=== PATIENT | female | born 1935 | race Caucasian/White ===

== ENCOUNTER → 2019-05-17 00:01 | Outpatient (BNVA) | payer MEDICARE, OTHER, SELFPAY | PROVIDERS: Family Provider Nurse Practitioner Family; PCP Nurse Practitioner Family; Visit Provider Nurse Practitioner Family | DX: J43.9 Emphysema, unspecified (principal); Z78.9 Other specified health status; E78.5 Hyperlipidemia, unspecified; R06.02 Shortness of breath; R53.83 Other fatigue; I10 Essential (primary) hypertension | CPT/HCPCS: 71046; 80053; 80061; 82607; 83880; 85025 ==

== ENCOUNTER 2019-11-05 09:23 | Outpatient (CLI) | payer MEDICARE, OTHER, SELFPAY ==
[2019-11-05 09:40] VITALS: BMI 35.2
--- NOTE | 2019-11-05 09:48 | ECG_ITS ---
[facility] Test Date: 2019-11-05 Pat Name: Cristina Rock Department: Room: Gender: Female Parts Classifier: : 1935 Requested By: Iza Benjamin Order Number: [id number] Danae MD: Iza Benjamin M.D. Interpretive Statements NAME OF STUDY: LEXISCAN SESTAMIBI STRESS TEST INDICATION: Increased shortness of breath NOTE: Please note that this is the electrocardiogram portion of the Lexiscan/Sestamibi stress test. The perfusion scan will be documented separately. DATA: Baseline heart rate was 57 beats per minute. Baseline blood pressure was 217/84 millimeters of mercury. Target heart rate was 136. Maximum heart rate achieved was 75. which was 55 % of the predicted target heart rate. Maximum blood pressure was 211/86 millimeters of mercury. The reason for ending the test was completion of the protocol. The patient did not experience any symptoms. ELECTROCARDIOGRAM: BASELINE: Sinus bradycardia. Normal axis. Otherwise, no ST-T changes suggestive of ischemia noted. No arrhythmia noted. EXERCISE: After Lexiscan injection, no ST-T changes suggestive of ischemic noted. No arrhythmia noted. CONCLUSION: Please note due to baseline abnormality of the EKG specificity and sensitivity of the EKG portion of LexiScan MIBI stress test will be low 1. EKG not suggestive of ischemia 2. Lexiscan injection unremarkable. 3. Perfusion scan will be documented separately. Electronically Signed On 11-11-2019 12:13:47 CDT by Iza Benjamin M.D. [id number]
--- NOTE | 2019-11-05 09:48 | NMCV_ITS ---
NM jarocho perf SPECT r/s* [id number] Cristina Rock Age: 84 Gender: F : 1935 Exam Date: 11/05/2019 11:01 Ordering Phys: Iza Benjamin MD ([email or web address]) Technologist: YOHANA Edwards Exam Location: [facility] Indications: INCREASED SOB STRESS TEST [facility] IMAGE PROTOCOL Rest/Stress 1 Lexiscan Day Radiopharmaceutical Dose (mCi) Administration Site Administered by Rest: Tc-99m 10.9 IV YOHANA Marrero Sestamibi Stress:Tc-99m 32.4 IV YOHANA Marrero Sestamibi Rest: 05-Nov-2019 60 Discovery 630 Stress: 05-Nov-2019 30 Discovery 630 0.4mg Lexiscan. Images obtained in supine and prone position. SPECT RESULTS Technical Quality: Excellent Raw Data Analysis: Normal Image Corrections: No attenuation or motion correction applied Summed Stress Score: 1 Summed Rest Score: 0 Summed Difference Score: 1 PERFUSION FINDINGS Medium-sized area of fixed perfusion defect noted in mid to distal anterior wall suggestive of old myocardial infarction versus scarring. This EKG is negative for ischemia. FUNCTIONAL RESULTS (calculated via Gated SPECT) Stress Image LV EF (%): 76 Stress EDV (mL):84 TID: 1.08 Stress ESV (mL):20 Rest Image LV EF (%): 76 FUNCTIONAL FINDINGS: There is normal left ventricular systolic function. IMPRESSIONS Medium-sized area of fixed perfusion defect noted in mid to distal anterior wall suggestive of old myocardial infarction versus scarring.Please note that in the absence of wall motion abnormality cannot rule out artifact. This study is negative for ischemia. Iza Benjamin MD (Electronically Signed) Final Date: 05 November 2019 20:20 S
--- NOTE | 2019-11-05 12:17 | SUR.PREOP ---
Patient reports no pain or discomfort prior to the start of the procedure.
[2019-11-05] MEDS: regadenoson 0.4 Mg/5 ml Syringe IVP (12:19)
[2019-11-05 12:27] VITALS: BP 176/82; PULSE 63
== END 2019-11-05 09:24 | disposition home or self-care (01) ==
LOC: CDL 09:23
PROVIDERS: PCP Family Medicine; Visit Provider Internal Medicine Cardiovascular Disease
DX: R06.02 Shortness of breath (principal)
CPT/HCPCS: 78452; 93017; A9500; J2785

== ENCOUNTER → 2020-07-10 08:45 | Outpatient (BNVA) | payer MEDICARE, OTHER, SELFPAY | PROVIDERS: PCP Family Medicine; Visit Provider Nurse Practitioner Family | DX: Z13.6 Encounter for screening for cardiovascular disorders (principal); I10 Essential (primary) hypertension; E55.9 Vitamin D deficiency, unspecified | CPT/HCPCS: 80053; 80061; 82306; 82607; 83036; 84443; 85025 ==

== ENCOUNTER 2020-09-15 13:05 | Outpatient (CLI) | payer MEDICARE, OTHER, SELFPAY ==
--- NOTE | 2020-09-15 13:30 | US_ITS ---
WS: [id number] ULTRASOUND THYROID TECHNIQUE: Ultrasound of the thyroid. CLINICAL INFORMATION: E04.1 - Nontoxic single thyroid nodule COMPARISON: None. FINDINGS: Thyroid: Right and left thyroid lobes are normal in size and echotexture. Multinodular thyroid. Right thyroid lobe: 5.2 cm x 2.1 cm x 1.6 cm 3 right-sided thyroid nodules largest is solid measuring 1.1 x 0.7 CM with a thin hypoechoic halo. 2 additional subcentimeter lesions. Left thyroid lobe: 3.6 cm x 1.4 cm x 1.5 cm. No visualized left-sided nodules. Isthmus: 4.2 mm. Prominent solid nodule along the isthmus measuring 1.1 x 1.4 x 1.7 CM. Cervical lymphadenopathy: None. US/US thyroid [id number] IMPRESSION: 1. Multinodular thyroid with largest nodule in the thyroid isthmus measuring 1 .1 x 1.4 x 1.7 cm. This can be further evaluated with FNA 2. Largest solid right-sided nodule measures 1.1 x 0.7 cm with a hypoechoic guzman lo and increased vascularity. Recommend further evaluation with FNA.
== END 2020-09-15 13:06 | disposition home or self-care (01) ==
LOC: RAD 13:09
PROVIDERS: PCP Family Medicine; Visit Provider Nurse Practitioner Family
DX: E04.1 Nontoxic single thyroid nodule (principal)
CPT/HCPCS: 76536

== ENCOUNTER 2020-09-30 11:51 | Outpatient (CLI) | payer MEDICARE, OTHER, SELFPAY ==
--- NOTE | 2020-09-30 13:30 | US_ITS ---
WS: [id number] ULTRASOUND-GUIDED FNA THYROID INDICATION: Thyroid nodules TECHNIQUE: Ultrasound-guided FNA FINDINGS: The procedure including risks, benefits, and complications were discussed with the patient who agreed to proceed. Using sterile technique patient was prepped and draped in usual sterile fashio n. After 1% lidocaine using ultrasound guidance the isthmus nodule was selected. 4 passes were made i nto the nodule with a 25-gauge needle and active suction. Pathology was present for slide preparation . Next, the right lobe thyroid nodule was localized with hypoechoic halo. After 1% lidocaine using ultr asound guidance 4 passes were made into the right thyroid nodule with a 25-gauge needle and active cummings ction. Pathology was present for slide preparation. Patient remained in the ultrasound Suite 20 minutes postprocedure to assess for neck hematoma. No hematoma or bleeding was visualized. US/US biopsy thyroid [id number] IMPRESSION: Ultrasound-guided FNA of the isthmus and right thyroid nodule.
== END 2020-09-30 11:52 | disposition home or self-care (01) ==
PROVIDERS: PCP Family Medicine; Visit Provider Nurse Practitioner Family
DX: E04.1 Nontoxic single thyroid nodule (principal)
CPT/HCPCS: 10005; 10006; 88173; 88305

== ENCOUNTER → 2020-10-19 10:50 | Outpatient (BNVA) | payer MEDICARE, OTHER, SELFPAY | PROVIDERS: PCP Family Medicine; Visit Provider Nurse Practitioner Family | DX: E55.9 Vitamin D deficiency, unspecified (principal); I10 Essential (primary) hypertension; R49.0 Dysphonia; E53.8 Deficiency of other specified B group vitamins; I48.19 Other persistent atrial fibrillation; E04.1 Nontoxic single thyroid nodule | CPT/HCPCS: 80053; 80061; 82306; 82607; 84443; 85025 ==

== ENCOUNTER → 2021-02-18 17:31 | Outpatient (BNVA) | payer MEDICARE, OTHER, SELFPAY | PROVIDERS: PCP Nurse Practitioner Family; Visit Provider Nurse Practitioner Family | DX: Z20.822 Contact with and (suspected) exposure to COVID-19 (principal) | CPT/HCPCS: 87635 ==

== ENCOUNTER 2021-02-24 13:06 | Outpatient (CLI) | payer MEDICARE, OTHER, SELFPAY ==
[2021-02-24 13:04] VITALS: BP 142/71; PULSE 59; RESP 16; TEMP 36.8; O2SAT 96; BMI 36.1
[2021-02-24 13:57] VITALS: BP 170/82; PULSE 54; RESP 18; TEMP 36.6; O2SAT 94
[2021-02-24 15:06] VITALS: BP 190/81; PULSE 55; RESP 16; TEMP 36.6; O2SAT 95
[2021-02-24 15:40] VITALS: BP 200/85; PULSE 55; RESP 16; TEMP 36.6; O2SAT 95
--- NOTE | 2021-02-24 15:49 | PC.NURSE ---
Pt's blood pressure consistently increased with each vitals assessment. Final BP was 200/85, informed Dr. Morton of BP, pt was asymptomatic. Per Dr. Morton's instructions pt was instructed to recheck BP upon arrival at home. Pt voiced understanding and appreciation.
== END 2021-02-24 13:07 | disposition home or self-care (01) ==
LOC: OPS 13:12
PROVIDERS: PCP Nurse Practitioner Family; Visit Provider Nurse Practitioner Family
DX: U07.1 COVID-19 (principal)
CPT/HCPCS: 96365

== ENCOUNTER → 2021-03-15 15:30 | Outpatient (BNVA) | payer MEDICARE, OTHER, SELFPAY | PROVIDERS: PCP Nurse Practitioner Family; Visit Provider Nurse Practitioner Family | DX: R53.83 Other fatigue (principal); E78.2 Mixed hyperlipidemia; I10 Essential (primary) hypertension; Z68.35 Body mass index [BMI] 35.0-35.9, adult; Z71.89 Other specified counseling; E55.9 Vitamin D deficiency, unspecified | CPT/HCPCS: 80053; 80061; 82306; 82607; 84443; 85025 ==

== ENCOUNTER → 2021-05-21 11:50 | Outpatient (BNVA) | payer MEDICARE, OTHER, SELFPAY | PROVIDERS: PCP Nurse Practitioner Family; Visit Provider Nurse Practitioner Family | DX: R19.7 Diarrhea, unspecified (principal) | CPT/HCPCS: 87338; 87493; 87506 ==

== ENCOUNTER → 2021-06-01 16:39 | Outpatient (BNVA) | payer MEDICARE, OTHER, SELFPAY | PROVIDERS: PCP Nurse Practitioner Family; Visit Provider Nurse Practitioner Family | DX: M19.021 Primary osteoarthritis, right elbow (principal); M85.88 Other specified disorders of bone density and structure, other site | CPT/HCPCS: 73080 ==

== ENCOUNTER → 2021-07-27 00:01 | Outpatient (BNVA) | payer MEDICARE, OTHER, SELFPAY | PROVIDERS: PCP Nurse Practitioner Family; Visit Provider Dermatology | DX: Z01.89 Encounter for other specified special examinations (principal) ==

== ENCOUNTER → 2021-09-10 13:27 | Outpatient (BNVA) | payer MEDICARE, OTHER, SELFPAY | PROVIDERS: PCP Nurse Practitioner Family; Visit Provider Nurse Practitioner Family | DX: E04.1 Nontoxic single thyroid nodule (principal); G25.81 Restless legs syndrome; I48.19 Other persistent atrial fibrillation; E53.8 Deficiency of other specified B group vitamins | CPT/HCPCS: 80053; 80061; 82607; 83735; 84439; 84443; 85025 ==

== ENCOUNTER → 2021-09-15 15:04 | Outpatient (BNVA) | payer MEDICARE, OTHER, SELFPAY | PROVIDERS: PCP Nurse Practitioner Family; Visit Provider Nurse Practitioner Family | DX: E87.6 Hypokalemia (principal); E55.9 Vitamin D deficiency, unspecified; R53.83 Other fatigue; I48.91 Unspecified atrial fibrillation; I48.19 Other persistent atrial fibrillation | CPT/HCPCS: 80048; 82306 ==

== ENCOUNTER 2021-09-21 10:48 | Outpatient (CLI) | payer MEDICARE, OTHER, SELFPAY ==
--- NOTE | 2021-09-21 12:00 | CT_ITS ---
WS: [id number] CT CHEST, ABDOMEN AND PELVIS WITH CONTRAST. HISTORY: Short of breath, nausea, weakness and fatigue. History of uterine cancer. TECHNIQUE: Contiguous 5 mm axial imaging performed through the chest, abdomen and pelvis with IV cont rast, oral contrast has been provided. Coronal and sagittal reformats chest. Coronal and sagittal ref ormats through the abdomen and pelvis. All CT scans at [facility] use at least one of these d ose optimization techniques: automated exposure control; mA and/or kV adjustment per patient size (in cludes targeted exams where dose is matched to clinical indication); or iterative reconstruction. CONTRAST: Omnipaque 300; 50 mL IV. DLP: 1650.37 mGy.cm COMPARISON: 08/29/[address]: Patient has numerous bilateral subcentimeter pulmonary nodules. Some of these are calcified and some are noncalcified. The largest nodule measures 5 mm in the RIGHT lower lobe and was present in 2017 and also 2014. No pneumonia or new pulmonary mass. Normal size pulmonary artery. Mild atheros clerosis aorta. No new or increasing mediastinal or hilar lymph nodes. LEFT heart chambers are modera tely enlarged. No pericardial effusion. Small hiatal hernia. Mild increase in thoracic kyphosis. Abdomen CT: Liver and spleen are normal size. No metastatic lesions in the liver. Normal bile ducts a nd normal portal vein. Prior cholecystectomy. Pancreas is normal. Normal adrenal glands. No renal mas s or obstruction. Mild atherosclerotic calcification throughout the aorta. No ascites or adenopathy. Numerous salima are noted along the anterior abdominal wall. Moderately distended stomach with fluid. No wall thickening. No small bowel obstruction. There is dif fuse fecal retention throughout the colon and a few scattered diverticula with no acute diverticuliti s. The appendix is been removed. Pelvic CT: Prior hysterectomy. Well-distended urinary bladder. No adenopathy or ascites. Mild degenerative disc disease and vacuum disc phenomenon at L4-5 and L5-S1. No osteoblastic or osteo lytic bone lesions. CT/CT chest abd pel w con* IMPRESSION: 1. Long-term stability of subcentimeter calcified and noncalcified pulmonary n odules. No new nodule or mass. 2. No adenopathy throughout the chest, abdomen or pelvis. 3. Moderate LEFT heart enlargement. 4. Prior hysterectomy, appendectomy and cholecystectomy.
== END 2021-09-21 10:49 | disposition home or self-care (01) ==
LOC: RAD 10:52
PROVIDERS: PCP Nurse Practitioner Family; Visit Provider Nurse Practitioner Family
DX: R53.83 Other fatigue (principal); R91.8 Other nonspecific abnormal finding of lung field; I51.7 Cardiomegaly
CPT/HCPCS: 71260; 74177; Q9967

== ENCOUNTER → 2021-11-12 09:46 | Outpatient (BNVA) | payer MEDICARE, OTHER, SELFPAY | PROVIDERS: PCP Nurse Practitioner Family; Visit Provider Internal Medicine | DX: R06.02 Shortness of breath (principal); I48.19 Other persistent atrial fibrillation; I10 Essential (primary) hypertension | CPT/HCPCS: 99214 ==

== ENCOUNTER → 2021-12-22 15:59 | Outpatient (BNVA) | payer MEDICARE, OTHER, SELFPAY | PROVIDERS: PCP Nurse Practitioner Family; Visit Provider Family Medicine | DX: E04.1 Nontoxic single thyroid nodule (principal); E53.8 Deficiency of other specified B group vitamins; E55.9 Vitamin D deficiency, unspecified; E78.5 Hyperlipidemia, unspecified; I10 Essential (primary) hypertension; I48.91 Unspecified atrial fibrillation; R53.83 Other fatigue | CPT/HCPCS: 80053; 80061; 82306; 82607; 84443; 85025 ==

== ENCOUNTER 2022-02-18 08:55 | Outpatient (CLI) | payer MEDICARE, OTHER, SELFPAY ==
--- NOTE | 2022-02-18 09:10 | ECG_ITS ---
[facility] Test Date: 2022-02-18 Pat Name: Cristina Rock Department: Room: Gender: Female Patient Access Director: : 1935 Requested By: Alrieza Haile Order Number: [id number] Danae MD: Alireza Haile M.D. Interpretive Statements NAME OF STUDY: LEXISCAN SESTAMIBI STRESS TEST INDICATION: [HTN/AFIB, ] Procedure: At the baseline, the blood pressure was 177/75 mmHg with a heart rate of 51 bpm. The electrocardiogram showed sinus bradycardia, normal axis with normal ST and T waves. The Lexiscan was infused over a period of 20 seconds. A total of 0.4 mg of Lexiscan was infused. The stress phase was continued for a total of 5 minutes. Heart rate was at the end of stress phase was 61 bpm and blood pressure was not recorded. The EKG at the peak infusion revealed normal sinus rhythm with no significant ST-T wave changes. Sestamibi was injected 20 seconds after the Lexiscan infusion. Blood pressure was not recorded at end of recovery phase with a heart rate of 56 bpm. Conclusion: 1. Normal EKG response to Lexiscan infusion 2. No Lexiscan induced chest pain or cardiac arrhythmia. 3. Normal blood pressure and heart rate response. 4. Sestamibi/sestamibi perfusion scan pending; see separate report. Electronically Signed On 02-19-2022 21:25:03 CDT by Alireza Haile M.D. [id number]
--- NOTE | 2022-02-18 09:10 | NMCV_ITS ---
NM jarocho perf SPECT r/s* [id number] Cristina Rock Age: 86 Gender: F : 1935 Exam Date: 02/18/2022 10:33 Ordering Phys: Alireza Haile M.D ([email or web address]) Technologist: YOHANA Edwards Exam Location: [facility] Indications: CHF AFIB STRESS TEST [facility] IMAGE PROTOCOL Rest/Stress 1 Lexiscan Day Radiopharmaceutical Dose (mCi) Administration Site Administered by Rest: Tc-99m 10.7 IV YOHANA Marrero Sestamibi Stress:Tc-99m 32.4 IV YOHANA Marrero Sestamibi Rest: 18-Feb-2022 60 Discovery 630 Stress: 18-Feb-2022 30 Discovery 630 0.4mg Lexiscan. Supine position only as patient was unable to lay prone. SPECT RESULTS Technical Quality: Excellent Raw Data Analysis: Normal Image Corrections: No attenuation or motion correction applied Summed Stress Score: 0 Summed Rest Score: 0 Summed Difference Score: 0 PERFUSION FINDINGS SPECT images demonstrate homogeneous tracer distribution throughout the myocardium. FUNCTIONAL RESULTS (calculated via Gated SPECT) Stress Image LV EF (%): 72 Stress EDV (mL):82 TID: 1.26 Stress ESV (mL):23 FUNCTIONAL FINDINGS: There is normal left ventricular systolic function. IMPRESSIONS 1. Normal myocardial perfusion imaging with no evidence of ischemia. 2. LV systolic function is normal. Alireza Haile MD (Electronically Signed) Final Date: 18 February 2022 13:27 S
[2022-02-18 09:46] VITALS: BMI 34.0
[2022-02-18] MEDS: regadenoson 0.4 Mg/5 ml Syringe IVP (11:01)
[2022-02-18 11:59] VITALS: BP 177/75; PULSE 61
== END 2022-02-18 08:56 | disposition home or self-care (01) ==
LOC: CDL 08:59
PROVIDERS: PCP Nurse Practitioner Family; Visit Provider Internal Medicine
DX: I50.9 Heart failure, unspecified (principal); I48.91 Unspecified atrial fibrillation
CPT/HCPCS: 78452; 93017; A9500; J2785

== ENCOUNTER → 2022-06-21 13:25 | Outpatient (BNVA) | payer MEDICARE, OTHER, SELFPAY | PROVIDERS: PCP Nurse Practitioner Family; Visit Provider Nurse Practitioner Family | DX: M25.511 Pain in right shoulder (principal); M16.11 Unilateral primary osteoarthritis, right hip; M25.551 Pain in right hip | CPT/HCPCS: 73030; 73502 ==

== ENCOUNTER → 2022-08-12 08:39 | Outpatient (BNVA) | payer MEDICARE, OTHER, SELFPAY | PROVIDERS: PCP Nurse Practitioner Family; Visit Provider Internal Medicine | DX: I48.19 Other persistent atrial fibrillation (principal); I11.0 Hypertensive heart disease with heart failure; I50.30 Unspecified diastolic (congestive) heart failure; Z79.01 Long term (current) use of anticoagulants | CPT/HCPCS: 99214 ==

== ENCOUNTER → 2022-08-22 10:50 | Outpatient (BNVA) | payer MEDICARE, OTHER, SELFPAY | PROVIDERS: PCP Nurse Practitioner Family; Visit Provider Nurse Practitioner Family | DX: E53.8 Deficiency of other specified B group vitamins (principal); I48.19 Other persistent atrial fibrillation; R07.9 Chest pain, unspecified; E55.9 Vitamin D deficiency, unspecified | CPT/HCPCS: 80053; 80061; 82306; 82607; 83735; 84443; 85025 ==

== ENCOUNTER 2022-09-07 10:54 | Outpatient (CLI) | payer MEDICARE, OTHER, SELFPAY ==
--- NOTE | 2022-09-07 11:15 | USCV_ITS ---
Cristina Rock Age: 86 Gender: F : 1935 Exam Date: 09/07/2022 11:15 Ordering Phys: Alireza Haile M.D ([email or web address]) Technologist: Cristhian Sullivan Exam Location: [facility] Indication: SOB/ CHEST PAIN BP: 136 / 70 HR: 87 Rhythm: Sinus Technical Quality: Adequate MEASUREMENTS (Male / Female) Normal Values 2D ECHO LV Diastolic Diameter PLAX 3.5 cm 4.2 - 5.9 / 3.9 - 5.3 cm LV Systolic Diameter PLAX 2.1 cm IVS Diastolic Thickness 1.1 cm 0.6 - 1.0 / 0.6 - 0.9 cm IVS Systolic Thickness 1.7 cm LVPW Diastolic Thickness 2.1 cm 0.6 - 1.0 / 0.6 - 0.9 cm LVPW Systolic Thickness 1.7 cm LVOT Diameter 2.0 cm LV Ejection Fraction 2D Teich 70.7 % LV Ejection Fraction MOD 2C 65.9 % LV Ejection Fraction 2C AL 66.0 % LA Diameter 3.8 cm LA Width 3.6 cm LA Height 6.0 cm RA Width 3.9 cm RA Height 5.6 cm Aorta at Sinotubular Diameter 2.2 cm IVC Diameter 1.8 cm M-MODE Aortic Annulus Diameter 2.7 cm LA Ao Ratio MM 1.5 MV E Point Septal Separation 0.6 cm DOPPLER AV Peak Velocity 115.0 cm/s LVOT Peak Velocity 92.0 cm/s AV Area Cont Eq vti 2.5 cm squared AV Area Cont Eq pk 2.5 cm squared MV Peak Velocity 121.0 cm/s MV Area PHT 5.8 cm squared Mitral E to A Ratio 3.3 MV E' Velocity 48.5 cm/s Mitral E to MV E' Ratio 10.9 Mitral E to LV E' Lateral Ratio 8.1 Mitral E to LV E' Septal Ratio 16.6 TR Peak Velocity 299.4 cm/s TR Peak Gradient 35.9 mmHg TR Mean Velocity 223.9 cm/s TR Mean Gradient 21.5 mmHg TR Velocity Time Integral 90.2 cm Right Atrial Pressure 3.0 mmHg Pulmonary Artery Systolic Pressu 38.9 mmHg PV Peak Velocity 93.3 cm/s RV Acceleration Time 0.1 s RV Ejection Time 0.3 s RV AcT/ET 0.4 FINDINGS Left Ventricle Left ventricle is normal in size. LV systolic function is normal with EF of 55-60%. No regional wall motion abnormalities are seen. Right Ventricle Normal in size and function Right Atrium Normal in size Left Atrium Normal in size Mitral Valve Structurally normal mitral valve. Mild to moderate mitral regurgitation. Aortic Valve Structurally normal aortic valve. No significant stenosis. Mild aortic regurgitation. Tricuspid Valve Mild to moderate tricuspid regurgitation. RVSP is 35-40mmHg. This is consistent with mild pulmonary hypertension Pulmonic Valve Not well visualized. Mild pulmonary hypertension Pericardium Normal Aorta Normal in size IVC Appears to be normal CONCLUSIONS LV systolic function is normal with EF of 55-60% Mild to moderate mitral regurgitation Mild aortic regurgitation Mild to moderate tricuspid regurgitation. Mild pulmonary hypertension Compared to prior echocardiogram from 2018, no significant changes are seen Alireza Haile MD (Electronically Signed) Final Date: 20 Sep 2022 16:50 S
== END 2022-09-07 10:55 | disposition home or self-care (01) ==
LOC: RAD 10:56
PROVIDERS: PCP Nurse Practitioner Family; Visit Provider Internal Medicine
DX: R06.02 Shortness of breath (principal); R07.9 Chest pain, unspecified
CPT/HCPCS: 93306

== ENCOUNTER → 2022-09-15 11:21 | Outpatient (BNVA) | payer MEDICARE, OTHER, SELFPAY | PROVIDERS: PCP Nurse Practitioner Family; Visit Provider Nurse Practitioner Family | DX: R06.02 Shortness of breath (principal); I70.90 Unspecified atherosclerosis | CPT/HCPCS: 71046 ==

== ENCOUNTER → 2022-11-18 11:25 | Outpatient (BNVA) | payer MEDICARE, OTHER, SELFPAY | PROVIDERS: PCP Nurse Practitioner Family; Visit Provider Nurse Practitioner Family | DX: E55.9 Vitamin D deficiency, unspecified (principal); E53.8 Deficiency of other specified B group vitamins; I48.19 Other persistent atrial fibrillation | CPT/HCPCS: 80053; 82306; 82607; 83735; 84443; 85025 ==

== ENCOUNTER 2023-01-09 18:26 | Emergency (ER) | payer MEDICARE, OTHER, SELFPAY ==
[2023-01-09 18:43] VITALS: BP 125/81; PULSE 80; RESP 16; TEMP 36.9; O2SAT 94; BMI 32.1
--- NOTE | 2023-01-09 18:57 | ECG_ITS ---
[facility] Test Date: 2023-01-09 Pat Name: Cristina Rock Department: Room: Gender: Female Science Teacher: : 1935 Requested By: Tatiana Hilliard Order Number: [id number] Danae MD: Alireza Haile M.D. Measurements Intervals [place] Rate: 112 P: 0 IL: 0 QRS: -68 QRSD: 99 T: 86 QT: 357 QTc: 488 Interpretive Statements ATRIAL FLUTTER/TACHYCARDIA WITH RAPID VENTRICULAR RESPONSE LEFT AXIS DEVIATION [QRS AXIS < -30] INCOMPLETE RIGHT BUNDLE BRANCH BLOCK [90+ ms QRS DURATION, TERMINAL R IN V1/V2, 40+ ms S IN I/aVL/V4/V5/V6] VOLTAGE CRITERIA FOR LVH [MEETS CRITERIA IN ONE OF: R(aVL), S(V1), R(V5), R(V5/V6)+S(V1)] POSSIBLE SEPTAL MYOCARDIAL INFARCTION , OF INDETERMINATE AGE [30 ms Q WAVE IN V1/V2] Compared to ECG 10/18/2018 06:00:56 Left-axis deviation now present Incomplete right bundle-branch block now present Sinus bradycardia no longer present Myocardial infarct finding still present Electronically Signed On 01-09-2023 20:22:37 CDT by Alireza Haile M.D. [id number]
--- NOTE | 2023-01-09 19:03 | XRR_ITS ---
PROCEDURE INFORMATION: Exam: XR Chest Exam date and time: 01/09/2023 7:10 PM Age: 87 years old Clinical indication: Pain; Chest pressure; Additional info: Cp TECHNIQUE: Imaging protocol: Radiologic exam of the chest. Views: 1 view. COMPARISON: CR XR chest 2V* [id number] 09/15/2022 11:25 AM FINDINGS: Lungs: Unremarkable. No consolidation. Pleural spaces: Unremarkable. No pleural effusion. No pneumothorax. Heart/Mediastinum: Unremarkable. No cardiomegaly. Bones/joints: Unremarkable. XR/XR chest 1V portable [id number] IMPRESSION: No acute findings.
[2023-01-09 19:08] VITALS: BP 121/84; PULSE 85; RESP 18; O2SAT 91
--- NOTE | 2023-01-09 19:17 | W.ED.CHESTPA ---
HPI - Chest Pain General: Chief Complaint: Chest Pain Stated Complaint: afib with rvd/ covid symptoms Time Seen by Provider: 01/09/23 18:44 Source: patient and EMS Mode of arrival: EMS Limitations: no limitations History of Present Illness: 87-year-old female with a history of A-fib states that today she was having some difficulty walking and feeling lightheaded. States that she checked her blood pressure it was in the 160s and her heart rate was in the 150s EMS gave her 20 mg of Cardizem IV blood pressure now is 121/84 heart rate is now 84 she states she feels much improved currently states she does not feel does anymore she never had any chest pain she had no shortness of breath denies any fever. Associated symptoms: Reports palpitations; Deny abdominal pain, dyspnea, fever(s), nausea or vomiting Review of Systems Const: Reports: malaise; Denies: fever(s) or chills ENMT: Denies: throat pain or dental pain Card: Reports: palpitations; Denies: chest pain Resp: Denies: dyspnea GI: Denies: abdominal pain, nausea, vomiting or diarrhea : Denies: dysuria Musc: Denies: neck pain or back pain Skin/Breast: Denies: rash Neuro: Reports: dizziness; Denies: headache(s) PFSH ED PFSH: Medical History Anticoagulated Atrial fibrillation Diastolic congestive heart failure Dyslipidemia Elevated liver enzymes Emphysema lung Essential hypertension Fatigue Hyperlipemia Hypertension 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 Pernicious anemia Presbycusis of both ears Primary osteoarthritis of left knee Pulmonary thromboembolism Shortness of breath Statin intolerance Surgical History History of appendectomy History of back surgery History of cholecystectomy Family History Other Heart disease Hypertension Social History Smoking and tobacco status: never smoked Second hand smoke exposure: No Alcohol intake: never Substance/Drug Use: never Lives independently: Yes Household members: none Housing: House Marital status: / service: No Current occupational status: retired Pets and animals: Yes Current gender identity: Female Special james needs: No Agree to transfusion: Yes Physical Exam Const: COMMON NORMALS: no acute distress, patient oriented x3 and healthy appearing HENMT: COMMON NORMALS: normocephalic and atraumatic HEAD & SCALP: normocephalic and atraumatic Eye: COMMON NORMALS: Equal, round and reactive pupils present and EOMs intact bilaterally PUPIL: Yes Equal, round and reactive pupils present Neck/C-Spine: COMMON NORMALS: full ROM and supple Chest: COMMONS NORMALS: normal inspection of the chest and normal palpation of entire chest wall Resp: COMMON NORMALS: normal respiratory effort, No retractions, No use of accessory muscles and clear to auscultation bilaterally AUSCULTATION: clear to auscultation bilaterally Cardio: COMMON NORMALS: regular rate and No murmurs present (Cardio) RATE: regular rate RHYTHM: abnormal rhythm irregularly irregular GI: COMMON NORMALS: Normal to inspection, nondistended, normoactive bowel sounds present, Soft to palpation, non-tender and no masses PALPATION: Yes Soft to palpation Extremity: COMMON NORMALS: normal to inspection and full ROM Neuro: COMMON NORMALS: patient oriented x3, moves all extremities and no focal motor deficits Psych: COMMON NORMALS: mental status grossly normal, Normal thought process present and cooperative THOUGHT PROCESS: Normal thought process present Skin: COMMON NORMALS: no rashes or lesions noted and no wounds GENERAL SKIN EXAM: no rashes or lesions noted Course Vital Signs: Vital signs: Vital Signs Temperature 98.5 F 01/09/23 18:43 Pulse Rate 85 01/09/23 19:08 Respiratory Rate 18 01/09/23 19:08 Blood Pressure 121/84 01/09/23 19:08 Pulse Oximetry 91 01/09/23 19:08 Oxygen Delivery Me thod Room Air 01/09/23 19:08 MDM - Chest Pain Medical Decision Making Patient presents for some generalized weakness along with A-fib with RVR. Her heart rate improved in route should her heart rates been normal here she did test positive for COVID x-rays normal she is not hypoxic here she is stable for discharge she is to follow-up with PCP and return if worsening she understands agrees to plan. Lab Data 01/09/23 20:06 01/09/23 20:06 Radiology Impressions Chest X-Ray 01/09/23 19:03 IMPRESSION: No acute findings. Laboratory Results WBC 6.27 10^3/uL (3.29-11.43) 01/09/23 20:06 RBC 4.99 10^6/uL (3.85-5.65) 01/09/23 20:06 Hgb 14.30 g/dL (11.27-16.99) 01/09/23 20:06 Hct 44.2 % (36-47) 01/09/23 20:06 MCV 88.6 fl (85-98) 01/09/23 20:06 MCH 28.7 pg (27-33) 01/09/23 20:06 MCHC 32.4 g/dL (30-55) 01/09/23 20:06 RDW 13.2 % (12.1-15.1) 01/09/23 20:06 Plt Count 166 10^3/cmm (157-399) 01/09/23 20:06 MPV 11.8 fL (7.4-10.4) H 01/09/23 20:06 Neut % (Auto) 50.3 % 01/09/23 20:06 Lymph % (Auto) 35.7 % 01/09/23 20:06 Wallace % (Auto) 13.4 % 01/09/23 20:06 Eos % (Auto) 0.2 % 01/09/23 20:06 Baso % (Auto) 0.2 % 01/09/23 20:06 Neut # (Auto) 3.16 10^3/uL (1.8-7.7) 01/09/23 20:06 Lymph # (Auto) 2.2 10^3/uL (0.8-4.8) 01/09/23 20:06 Wallace # (Auto) 0.8 10^3/uL (0.2-0.9) 01/09/23 20:06 Eos # (Auto) 0.0 10^3/uL (0.0-0.8) 01/09/23 20:06 Baso # (Auto) 0.0 10^3/uL (0.0-0.1) 01/09/23 20:06 Nucleated RBC % (auto) 0 % 01/09/23 20:06 Nucleated RBCs # 0.0 /100WBC 01/09/23 20:06 PT 15.60 SECONDS (12.1-14.9) H 01/09/23 20:06 INR 1.20 (0.8-1.2) 01/09/23 20:06 Sodium 137 mmol/L (136-145) 01/09/23 20:06 Potassium 4.2 mmol/L (3.5-5.1) 01/09/23 20:06 Chloride 98 mmol/L (98-107) 01/09/23 20:06 Carbon Dioxide 28 mmol/L (22-29) 01/09/23 20:06 Anion Gap 15.2 (5-19) 01/09/23 20:06 BUN 29 mg/dL (8-23) H 01/09/23 20:06 Creatinine 0.9 mg/dL (0.5-0.9) 01/09/23 20:06 GFR Calculation Not Reportable 01/09/23 20:06 Glucose 98 mg/dL (65-115) 01/09/23 20:06 Calculated Osmolality 290 mOsm/kg (285-295) 01/09/23 20:06 Calcium 9.2 mg/dL (8.5-10.5) 01/09/23 20:06 Total Bilirubin 0.5 mg/dL (0.15-1.2) 01/09/23 20:06 AST 22 U/L (0-32) 01/09/23 20:06 ALT 19 U/L (0-33) 01/09/23 20:06 Alkaline Phosphatase 70 U/L (35-105) 01/09/23 20:06 Total Protein 7.0 g/dL (6.6-8.7) 01/09/23 20:06 Albumin 3.7 g/dL (3.5-5.2) 01/09/23 20:06 Globulin 3.3 g/dL (1.3-4.6) 01/09/23 20:06 SARS-CoV-2 Ag (Rapid) Positive (Negative) A* 01/09/23 19:25 Discharge Plan Discharge Patient Disposition: Home Clinical Impression: Atrial fibrillation, COVID-19 Condition: Stable Prescriptions: No Action coenzyme Q10 10 mg capsule 10 mg PO TID vit C,E,Zn,Jc--fcl-zeax 250-2.5-0.5 mg capsule PO Gin-Raisins PO tumeric PO vitamin C PO furosemide 20 mg tablet See Rx Instructions .ROUTE .COMPLEX Qty: 360 3RF Dose Instruction: TAKE ONE TABLET BY MOUTH TWICE DAILY. Rx Instructions: TAKE ONE TABLET BY MOUTH TWICE DAILY. budesonide-formoterol [Symbicort] 160-4.5 mcg/actuation HFA aerosol inhaler See Rx Instructions .ROUTE .COMPLEX Qty: 10.2 12RF Dose Instruction: INHALE 1 PUFF BY MOUTH TWICE DAILY. Rx Instructions: INHALE 1 PUFF BY MOUTH TWICE DAILY. albuterol sulfate 90 mcg/actuation HFA aerosol inhaler See Rx Instructions .ROUTE .COMPLEX Qty: 18 12RF Dose Instruction: INJECT TWO PUFFS EVERY 6 HOURS NEEDED FOR SHORTNESS OF BREATH Rx Instructions: INJECT TWO PUFFS EVERY 6 HOURS NEEDED FOR SHORTNESS OF BREATH Xarelto 20 mg tablet See Rx Instructions .ROUTE .COMPLEX Qty: 90 3RF Dose Instruction: TAKE ONE TABLET BY MOUTH EVERY DAY; must take with evening meal Rx Instructions: TAKE ONE TABLET BY MOUTH EVERY DAY; must take with evening meal omeprazole 20 mg capsule,delayed release(DR/EC) 20 mg PO BID Qty: 60 0RF cholecalciferol (vitamin D3) 100 mcg (4,000 unit) capsule 100 mcg PO DAILY Qty: 90 1RF nitroglycerin [Nitrostat] 0.4 mg tablet, sublingual 0.4 mg SUBLINGUAL Q5M PRN (Reason: chest pain) Qty: 20 2RF diclofenac sodium [Voltaren Arthritis Pain] 1 % gel 2 g topical QID Qty: 100 0RF Rx Instructions: apply to single elbow, wrist or hand; for hand includes palm/fingers/back of hand cyanocobalamin (vitamin B-12) 1,000 mcg/mL solution 1,000 mcg IM .[id number] Qty: 1 6RF isosorbide mononitrate 30 mg tablet extended release 24 hr See Rx Instructions .ROUTE .COMPLEX Qty: 90 1RF Dose Instruction: TAKE 1/2 TABLET BY MOUTH TWICE DAILY Rx Instructions: TAKE 1/2 TABLET BY MOUTH TWICE DAILY clonidine HCl 0.2 mg tablet See Rx Instructions .ROUTE .COMPLEX Qty: 90 1RF Dose Instruction: TAKE ONE TABLET BY MOUTH EVERY DAY AT BEDTIME. Rx Instructions: TAKE ONE TABLET BY MOUTH EVERY DAY AT BEDTIME. metoprolol tartrate 25 mg tablet See Rx Instructions .ROUTE .COMPLEX Qty: 90 1RF Dose Instruction: TAKE 1/2 TABLET BY MOUTH TWICE DAILY. Rx Instructions: TAKE 1/2 TABLET BY MOUTH TWICE DAILY. losartan 25 mg tablet See Rx Instructions .ROUTE .COMPLEX Qty: 30 2RF Dose Instruction: TAKE ONE TABLET BY MOUTH DAILY. Rx Instructions: TAKE ONE TABLET BY MOUTH DAILY. 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
[2023-01-09 19:55] LABS: SARS Covid-2 Antigen Positive (Negative)
[2023-01-09] MEDS: sodium chloride 0.9% 500 ML 999 ML IV (20:26)
[2023-01-09 20:33] LABS: Basophils % 0.2 %; Eosinophils % 0.2 %; Hematocrit 44.2 % (36-47); Lymphocytes # 2.2 10^3/uL (0.8-4.8); Lymphocytes % 35.7 %; Mean Corpuscular HGB Conc 32.4 g/dL (30-55); Mean Corpuscular Hemoglobin 28.7 pg (27-33); Mean Corpuscular Volume 88.6 fl (85-98); Mean Platelet Volume 11.8 fL (7.4-10.4); Monocytes # 0.8 10^3/uL (0.2-0.9); Monocytes % 13.4 %; Neutrophils # 3.16 10^3/uL (1.8-7.7); Neutrophils % 50.3 %; Nucleated Red Blood Cells % 0 %; Platelet Count 166 10^3/cmm (157-399); Red Blood Count 4.99 10^6/uL (3.85-5.65); Red Cell Distribution Width 13.2 % (12.1-15.1); White Blood Count 6.27 10^3/uL (3.29-11.43)
[2023-01-09 20:50] LABS: Alanine Aminotransferase 19 U/L (0-33); Albumin Level 3.7 g/dL (3.5-5.2); Alkaline Phosphatase 70 U/L (35-105); Anion Gap 15.2 (5-19); Aspartate Amino Transferase 22 U/L (0-32); Blood Urea Nitrogen 29 mg/dL (8-23); Calcium 9.2 mg/dL (8.5-10.5); Carbon Dioxide 28 mmol/L (22-29); Chloride 98 mmol/L (98-107); Globulin 3.3 g/dL (1.3-4.6); Glucose 98 mg/dL (65-115); Osmolality Calculated 290 mOsm/kg (285-295); Potassium 4.2 mmol/L (3.5-5.1); Sodium 137 mmol/L (136-145); Total Bilirubin 0.5 mg/dL (0.15-1.2)
== END 2023-01-09 21:59 | disposition home or self-care (01) ==
PROVIDERS: Emergency Provider Emergency Medicine; PCP Nurse Practitioner Family
DX: I48.91 Unspecified atrial fibrillation (principal); U07.1 COVID-19; I11.0 Hypertensive heart disease with heart failure; I50.30 Unspecified diastolic (congestive) heart failure; E78.5 Hyperlipidemia, unspecified; J43.9 Emphysema, unspecified
CPT/HCPCS: 36415; 71045; 80053; 85025; 85610; 87426; 93005; 99285; J7040

== ENCOUNTER → 2023-02-15 12:41 | Outpatient (BNVA) | payer MEDICARE, OTHER, SELFPAY | PROVIDERS: PCP Nurse Practitioner Family; Visit Provider Internal Medicine Cardiovascular Disease | DX: R06.02 Shortness of breath (principal); I11.0 Hypertensive heart disease with heart failure; I50.30 Unspecified diastolic (congestive) heart failure | CPT/HCPCS: 99214 ==

== ENCOUNTER 2023-06-10 17:57 | Inpatient (IN) | payer MEDICARE, OTHER, SELFPAY ==
[2023-06-10] VITALS (10 sets, daily range): BP systolic 128–185; BP diastolic 81–137; PULSE 87–135; RESP 18–23; TEMP 36.9–37.2; O2SAT 91–94; BMI 37.2
--- NOTE | 2023-06-10 18:31 | XRR_ITS ---
PROCEDURE INFORMATION: Exam: XR Chest Exam date and time: 06/10/2023 7:04 PM Age: 87 years old Clinical indication: Patient HX: RT side chest pain post cough; Epigastric pain/tightness TECHNIQUE: Imaging protocol: Radiologic exam of the chest. Views: 1 view. COMPARISON: CR XR chest 1V portable [id number] 01/09/2023 7:10 PM FINDINGS: Lungs: Unremarkable. No consolidation. Pleural spaces: Unremarkable. No pleural effusion. No pneumothorax. Heart/Mediastinum: Unremarkable. No cardiomegaly. Bones/joints: Unremarkable. XR/XR chest 1V [id number] IMPRESSION: No acute findings.
--- NOTE | 2023-06-10 19:15 | ECG_ITS ---
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 Measurements Intervals [place] Rate: 101 P: 0 [place]: 0 QRS: 0 QRSD: 83 T: 68 QT: 326 QTc: 423 Interpretive Statements ATRIAL FLUTTER/TACHYCARDIA WITH RAPID VENTRICULAR RESPONSE NONSPECIFIC ST & T-WAVE ABNORMALITY ABNORMAL RHYTHM ECG Compared to ECG 01/09/2023 18:57:11 T-wave abnormality now present Left-axis deviation no longer present Incomplete right bundle-branch block no longer present Left ventricular hypertrophy no longer present Myocardial infarct finding no longer present Electronically Signed On 06-10-2023 21:58:30 BRICK PAVER by April Juarez M.D. [id number]
[2023-06-10 19:52] LABS: Basophils % 0.2 %; Hematocrit 44.1 % (36-47); Lymphocytes # 1.2 10^3/uL (0.8-4.8); Lymphocytes % 21.9 %; Mean Corpuscular HGB Conc 33.6 g/dL (30-55); Mean Corpuscular Hemoglobin 29.5 pg (27-33); Mean Corpuscular Volume 87.8 fl (85-98); Mean Platelet Volume 11.1 fL (7.4-10.4); Monocytes # 0.6 10^3/uL (0.2-0.9); Neutrophils # 3.43 10^3/uL (1.8-7.7); Neutrophils % 65.5 %; Nucleated Red Blood Cells % 0 %; Platelet Count 176 10^3/cmm (157-399); Red Blood Count 5.02 10^6/uL (3.85-5.65); Red Cell Distribution Width 13.2 % (12.1-15.1); White Blood Count 5.24 10^3/uL (3.29-11.43)
[2023-06-10 20:09] LABS: Alanine Aminotransferase 18 U/L (0-33); Albumin Level 4.2 g/dL (3.5-5.2); Alkaline Phosphatase 68 U/L (35-105); Anion Gap 14.8 (5-19); Aspartate Amino Transferase 25 U/L (0-32); Blood Urea Nitrogen 13 mg/dL (8-23); Calcium 9.7 mg/dL (8.5-10.5); Carbon Dioxide 29 mmol/L (22-29); Chloride 98 mmol/L (98-107); Globulin 3.6 g/dL (1.3-4.6); Glucose 102 mg/dL (65-115); Osmolality Calculated 286 mOsm/kg (285-295); Potassium 3.8 mmol/L (3.5-5.1); Sodium 138 mmol/L (136-145); Total Bilirubin 1.1 mg/dL (0.15-1.2); Total Protein 7.8 g/dL (6.6-8.7)
[2023-06-10 20:45] LABS: Influenza A by IFA positive (Negative); Influenza B by IFA negative (Negative)
[2023-06-10] MEDS: cloNIDine 0.1 mg Tablet 0.2 MG PO (20:46)
[2023-06-10] MEDS: sodium chloride 0.9% 1,000 ML 999 ML IV (20:46)
[2023-06-10] MEDS: metoprolol tartrate 25 mg Tablet PO (20:46)
[2023-06-10 20:55] LABS: SARS Covid-2 Antigen negative (Negative)
[2023-06-10] MEDS: albuterol 2.5 mg/3 mL Neb INHALATION (21:24)
[2023-06-10 21:30] LABS: Add Urine Microscopic? YES; Bilirubin Urine Neg (Negative); Blood Urine 3+ (Negative); Glucose Urine UA Norm (Normal); Ketones Urine 1+ (Negative); Leukocyte Esterase Urine 2+ (Negative); Nitrate Urine Negative (Negative); Protein Urine 2+ (Negative); Specific Gravity, Urine 1.015 (1.005-1.030); Urine Appearance Cloudy (CLEAR); Urine Color Yellow (Yellow); Urobilinogen Urine Norm (Negative); pH Urine 6 (5-7)
[2023-06-10 21:34] LABS: Bacteria Urine 4+ /hpf; Mucus Urine 2+ /hpf; RBC Urine 25-40 /hpf (0-2); WBC Urine 55-80 /hpf (0-5)
[2023-06-10 21:35] LABS: Add Urine Culture? Yes
[2023-06-10] MEDS: cefTRIAXone 1,000 MG in sodium chloride 0.9% (plus) 50 ML 100 MG IV (22:42)
--- NOTE | 2023-06-10 22:54 | P.HP_ITS ---
Providers/Chief Complaint 2 Primary Care Provider: CATHERINE Rowe Chief Complaint: RIB PAIN S/P COUGH History of Present Illness Cristina Rock is a 87 year old female with a past medical history of atrial fibrillation, on Xarelto, hypertension, who presents to [facility] due to fatigue, malaise, wheezing, shortness of breath. Patient tells me for the last 24 hours, she is feeling weak, fatigued, tired, shortness of breath, nonproductive cough, no dysuria, no hematuria no flank pain, no abdominal pain, Review of Systems 2 Const: Reports: fatigue and malaise; Denies: fever(s) or chills Card: Denies: chest pain Resp: Reports: dyspnea and wheezing GI: Denies: abdominal pain : Denies: flank pain Medications/Allergies Home Medications Medication Instructions Recorded Confirmed Last Taken Type cholecalciferol (vitamin D3) 100 100 mcg PO DAILY #90 caps 06/28/21 02/15/23 Unknown Rx mcg (4,000 unit) capsule diclofenac sodium 1 % topical gel 2 g topical QID #100 grams 06/28/21 02/15/23 Unknown Rx (Voltaren Arthritis Pain) nitroglycerin 0.4 mg sublingual 0.4 mg sublingual Q5M PRN chest 06/28/21 02/15/23 Unknown Rx tablet (Nitrostat) pain #20 tabs Gin-Raisins PO 08/12/22 02/15/23 Unknown History coenzyme Q10 10 mg capsule 10 mg PO TID 08/12/22 02/15/23 Unknown History tumeric PO 08/12/22 02/15/23 Unknown History vit cap PO 08/12/22 02/15/23 Unknown History C,E,zinc,Wt-dunbe-1-lutein-zeaxanthin 250 mg-2.5 mg-0.5 mg capsule vitamin C PO 08/12/22 02/15/23 Unknown History cyanocobalamin (vitamin B-12) 1,000 mcg IM .[id number] #1 mL 12/05/22 02/15/23 Unknown Rx 1,000 mcg/mL injection solution albuterol sulfate 90 mcg/actuation See Rx Instructions .Route 12/26/22 02/15/23 Unknown Rx aerosol inhaler .COMPLEX #18 grams budesonide-formoterol HFA 160 See Rx Instructions .Route 12/26/22 02/15/23 Unknown Rx mcg-4.5 mcg/actuation aerosol .COMPLEX #10.2 grams inhaler (Symbicort) rivaroxaban 20 mg tablet (Xarelto) See Rx Instructions .Route 12/26/22 02/15/23 Unknown Rx .COMPLEX #90 tabs isosorbide mononitrate 30 mg See Rx Instructions .Route 12/27/22 02/15/23 Unknown Rx tablet,extended release 24 hr .COMPLEX #90 tabs clonidine HCl 0.2 mg tablet See Rx Instructions .Route 01/02/23 02/15/23 Unknown Rx .COMPLEX #90 tabs metoprolol tartrate 25 mg tablet See Rx Instructions .Route 01/02/23 02/15/23 Unknown Rx .COMPLEX #90 tabs citalopram 10 mg tablet 10 mg PO DAILY #30 tabs 02/02/23 02/15/23 Unknown Rx furosemide 20 mg tablet See Rx Instructions .Route 06/02/23 Unknown Rx .COMPLEX #180 tabs Allergies Allergy/AdvReac Type Severity Reaction Status Date / Time No Known Allergies Allergy Verified 02/15/23 13:01 PFSH Acute 2 PFSH: Medical History Dementia 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 Elevated liver enzymes Primary osteoarthritis of left knee Pernicious anemia 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 Diastolic congestive heart failure Dyslipidemia Essential hypertension Emphysema lung Statin intolerance Hyperlipemia Atrial fibrillation Fatigue Hypertension Shortness of breath Surgical History History of cholecystectomy History of appendectomy History of back surgery Family History Other Heart disease Hypertension Social History Smoking and tobacco/nicotine status: never used tobacco/nicotine Second hand smoke exposure: No Alcohol intake: never Substance/Drug Use: never Lives independently: Yes Household members: none Housing: House Marital status: / service: No Current occupational status: retired Pets and animals: Yes Current gender identity: Female Special james needs: No Agree to transfusion: Yes Vitals/I&O/Wt Last Vital Signs Temp 99 F 01/27/24 18:09 Pulse 123 H 06/10/23 21:33 Resp 18 06/10/23 21:25 BP 165/90 06/10/23 21:18 Pulse Ox 94 06/10/23 21:25 O2 Del Method Room Air 06/10/23 21:25 06/10/23 06/10/23 06/10/23 06:59 14:59 22:59 Intake Total 1000 / 1000 Balance 1000 / 1000 Weight last 48 hrs Weight 95.254 kg Physical Exam 2 Const: COMMON NORMALS: no acute distress and patient oriented x3 HENMT: COMMON NORMALS: normocephalic HEAD & SCALP: normocephalic Eye: COMMON NORMALS: Equal, round and reactive pupils present and EOMs intact bilaterally Neck/C-Spine: COMMON NORMALS: no JVD Lymph: LYMPHATIC: no lymphadenopathy noted Resp: COMMON NORMALS: normal respiratory effort, No retractions, No use of accessory muscles and clear to auscultation bilaterally AUSCULTATION: wheezes Cardio: COMMON NORMALS: no JVD, regular rhythm, S1 normal heart sound present and S2 normal heart sound present RATE: tachycardic RHYTHM: regular rhythm HEART SOUNDS: S1 normal heart sound present and S2 normal heart sound present GI: COMMON NORMALS: Normal to inspection, nondistended, normoactive bowel sounds present, Soft to palpation and non-tender Extremity: COMMON NORMALS: no calf tenderness and no pedal edema Neuro: COMMON NORMALS: patient oriented x3, CN's II-XII intact bilaterally and moves all extremities Psych: COMMON NORMALS: mental status grossly normal Data 06/10/23 19:40 06/10/23 19:40 A&P Assessment and plan (1) Influenza A: (2) UTI (urinary tract infection): Plan Influenza A -Continue Tamiflu -DuoNeb, budesonide -Wheezing, respiratory therapy eval UTI, Rocephin Dehydration, IV fluids A-fib with RVR in the emergency room, she has not taken medication today, resume home metoprolol, Xarelto, telemetry monitoring Full code Xarelto for DVT prophylaxis Attestations 2 Medical Necessity Statement*: Patient requires hospitalization, outpatient observation for influenza A, UTI, dehydration Diagnoses Influenza A J10.1 UTI (urinary tract infection) N39.0
[2023-06-10 23:24] LABS: Procalcitonin 0.05 ng/mL (0-0.5); Thyroid Stimulating Hormone 0.51 uIU/mL (0.27-4.20)
[2023-06-10 23:35] LABS: C Reactive Protein 27.1 mg/L (0.0-4.9)
[2023-06-11] VITALS (15 sets, daily range): BP systolic 134–168; BP diastolic 73–87; PULSE 69–96; RESP 15–18; TEMP 36.6–37.2; O2SAT 91–98
[2023-06-11] MEDS: pantoprazole 40 mg SDV IVP (00:21)
[2023-06-11] MEDS: oseltamivir phosphate 75 mg Capsule PO ×3 (00:21→22:49)
[2023-06-11] MEDS: sodium chloride 0.9% 1,000 ML 50 ML IV (00:21)
[2023-06-11] MEDS: isosorbide mononitrate ER 30 mg Tablet 15 MG PO ×3 (00:21→17:52)
--- NOTE | 2023-06-11 01:13 | PC.NURSE ---
Patient states that the month is June and the year is 2003, but is otherwise oriented.
--- NOTE | 2023-06-11 01:23 | PC.NURSE ---
Addendum entered by Micki June RN 06/11/23 01:27: ED staff states that they were not given a home medication list. Original Note: Patient states her son gave her home medication list to someone. This list is not in patient's paper chart and is unable to be located. Unable to complete med red at this time.
[2023-06-11] MEDS: budesonide 0.5 mg/2 mL Neb 0.25 MG INHALATION (08:11)
[2023-06-11] MEDS: ipratropium-albuterol 3 mL Neb INHALATION ×3 (08:11→20:33)
[2023-06-11] MEDS: metoprolol tartrate 25 mg Tablet 12.5 MG PO ×2 (08:19→17:52)
[2023-06-11] MEDS: citalopram 20 mg Tablet 10 MG PO (08:19)
[2023-06-11] MEDS: flu vacc pf 2023-24 (6 mos+) 60 MCG IM (08:20)
[2023-06-11] MEDS: methylPREDNISolone sod succ 40 mg/mL INJ IVP ×2 (13:46→20:36)
--- NOTE | 2023-06-11 14:53 | ED_ITS ---
HPI - URI/Sore Throat 2 General: Chief Complaint: Upper Respiratory Infection Stated Complaint: RIB PAIN S/P COUGH Time Seen by Provider: 06/10/23 19:11 History of Present Illness: 87 year old female who lives at home. [place] walker presents with cough, shortness of breath, congestion, diarrhea, and generalized weakness. She does not believe she has had a fever. No significant confusion. She's not able to ambulate at home, which she normally can. 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 Elevated liver enzymes Primary osteoarthritis of left knee Pernicious anemia 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 Diastolic congestive heart failure Dyslipidemia Essential hypertension Emphysema lung Statin intolerance Hyperlipemia Atrial fibrillation Fatigue Hypertension Shortness of breath Surgical History History of cholecystectomy History of appendectomy History of back surgery Family History Other Heart disease Hypertension Social History Smoking and tobacco/nicotine status: never used tobacco/nicotine Second hand smoke exposure: No Alcohol intake: never Substance/Drug Use: never Lives independently: Yes Household members: none Housing: House Marital status: / service: No Current occupational status: retired Pets and animals: Yes Current gender identity: Female Special james needs: No Agree to transfusion: Yes Physical Exam 2 Const: GENERAL APPEARANCE: cooperative, ill appearing and frail appearing HENMT: COMMON NORMALS: normocephalic, atraumatic and Normal external nose present HEAD & SCALP: normocephalic and atraumatic FACE & SINUS: normal facial exam and face symmetric NOSE: Normal external nose present Eye: COMMON NORMALS: Equal, round and reactive pupils present and EOMs intact bilaterally PUPIL: Yes Equal, round and reactive pupils present Neck/C-Spine: GENERAL: Yes trachea midline Chest: CHEST: Yes Symmetrical chest wall rise Resp: COMMON NORMALS: clear to auscultation bilaterally EFFORT & INSPECTION: Yes tachypneic AUSCULTATION: clear to auscultation bilaterally and diminished lung sounds Cardio: COMMON NORMALS: regular rhythm RATE: tachycardic RHYTHM: regular rhythm GI: INSPECTION: Yes abdominal distension Extremity: COMMON NORMALS: no pedal edema Neuro: MARIANA COMA SCALE: document GCS findings [place] coma scale eye opening: Spontaneous [place] coma scale verbal response: Orientated [place] coma scale motor response: Obey commands [place] coma scale total score: 15 S ENSORY EXAM: Yes extremities (intact) Psych: COMMON NORMALS: speech normal SPEECH: Yes normal speech Skin: COMMON NORMALS: no rashes or lesions noted GENERAL SKIN EXAM: no rashes or lesions noted Course 2 Vital Signs: Vital signs: Vital Signs Temperature 98.2 F 06/11/23 12:00 Pulse Rate 77 06/11/23 13:51 Respiratory Rate 18 06/11/23 13:46 Blood Pressure 134/76 06/11/23 12:00 Pulse Oximetry 96 06/11/23 13:46 Oxygen Delivery Me thod Room Air 06/11/23 13:46 MDM - URI/Sore Throat Medical Decision Making 87 year old female. She has been unable to tolerate her medications at home. She is generally weak period she presents significantly hypertensive and tachycardic. Her heart rate has been as high as 130. It has improved after taking metoprolol here. Hypertension is improved as well. She is quite weak, and barely able to stand. She's had diarrhea. She has a urinary tract infection, as well as influenza A period she has been given a fluid bolus. She'll be observed for generalized weakness, UTI, influenza. Hospitalist is aware. Lab Data 06/10/23 19:40 06/10/23 19:40 Radiology Impressions Chest X-Ray 06/10/23 18:31 IMPRESSION: No acute findings. Laboratory Results WBC 5.24 10^3/uL (3.29-11.43) 06/10/23 19:40 RBC 5.02 10^6/uL (3.85-5.65) 06/10/23 19:40 Hgb 14.80 g/dL (11.27-16.99) 06/10/23 19:40 Hct 44.1 % (36-47) 06/10/23 19:40 MCV 87.8 fl (85-98) 06/10/23 19:40 MCH 29.5 pg (27-33) 06/10/23 19:40 MCHC 33.6 g/dL (30-55) 06/10/23 19:40 RDW 13.2 % (12.1-15.1) 06/10/23 19:40 Plt Count 176 10^3/cmm (157-399) 06/10/23 19:40 MPV 11.1 fL (7.4-10.4) H 06/10/23 19:40 Neut % (Auto) 65.5 % 06/10/23 19:40 Lymph % (Auto) 21.9 % 06/10/23 19:40 Reynolds % (Auto) 12.0 % 06/10/23 19:40 Eos % (Auto) 0.0 % 06/10/23 19:40 Baso % (Auto) 0.2 % 06/10/23 19:40 Neut # (Auto) 3.43 10^3/uL (1.8-7.7) 06/10/23 19:40 Lymph # (Auto) 1.2 10^3/uL (0.8-4.8) 06/10/23 19:40 Reynolds # (Auto) 0.6 10^3/uL (0.2-0.9) 06/10/23 19:40 Eos # (Auto) 0.0 10^3/uL (0.0-0.8) 06/10/23 19:40 Baso # (Auto) 0.0 10^3/uL (0.0-0.1) 06/10/23 19:40 Nucleated RBC % (auto) 0 % 06/10/23 19:40 Nucleated RBCs # 0.0 /100WBC 06/10/23 19:40 Sodium 138 mmol/L (136-145) 06/10/23 19:40 Potassium 3.8 mmol/L (3.5-5.1) 06/10/23 19:40 Chloride 98 mmol/L (98-107) 06/10/23 19:40 Carbon Dioxide 29 mmol/L (22-29) 06/10/23 19:40 Anion Gap 14.8 (5-19) 06/10/23 19:40 BUN 13 mg/dL (8-23) 06/10/23 19:40 Creatinine 0.7 mg/dL (0.5-0.9) 06/10/23 19:40 GFR Calculation Not Reportable 06/10/23 19:40 Glucose 102 mg/dL (65-115) 06/10/23 19:40 Calculated Osmolality 286 mOsm/kg (285-295) 06/10/23 19:40 Calcium 9.7 mg/dL (8.5-10.5) 06/10/23 19:40 Total Bilirubin 1.1 mg/dL (0.15-1.2) 06/10/23 19:40 AST 25 U/L (0-32) 06/10/23 19:40 ALT 18 U/L (0-33) 06/10/23 19:40 Alkaline Phosphatase 68 U/L (35-105) 06/10/23 19:40 C-Reactive Protein 27.1 mg/L (0.0-4.9) H 06/10/23 19:40 Total Protein 7.8 g/dL (6.6-8.7) 06/10/23 19:40 Albumin 4.2 g/dL (3.5-5.2) 06/10/23 19:40 Globulin 3.6 g/dL (1.3-4.6) 06/10/23 19:40 Procalcitonin 0.05 ng/mL (0-0.5) 06/10/23 19:40 TSH 0.51 uIU/mL (0.27-4.20) 06/10/23 19:40 Urine Color Yellow (Yellow) 06/10/23 21:16 Urine Appearance Cloudy (CLEAR) A 06/10/23 21:16 Urine pH 6 (5-7) 06/10/23 21:16 Ur Specific [place] 1.015 (1.005-1.030) 06/10/23 21:16 Urine Protein 2+ (Negative) H 06/10/23 21:16 Urine Glucose (UA) Norm (Normal) 06/10/23 21:16 Urine Ketones 1+ (Negative) H 06/10/23 21:16 Urine Blood 3+ (Negative) H 06/10/23 21:16 Urine Nitrate Negative (Negative) 06/10/23 21:16 Urine Bilirubin Neg (Negative) 06/10/23 21:16 Urine Urobilinogen Norm mg/dL (Negative) 06/10/23 21:16 Ur Leukocyte Esterase 2+ (Negative) H 06/10/23 21:16 Urine RBC 25-40 /hpf (0-2) H 06/10/23 21:16 Urine WBC 55-80 /hpf (0-5) H 06/10/23 21:16 Ur Squamous Epith Cells 5-10 /hpf (0-5) H 06/10/23 21:16 Amorphous Sediment Not Reportable 06/10/23 21:16 Urine Bacteria 4+ /hpf (NONE) H 06/10/23 21:16 Urine Mucus 2+ /hpf 06/10/23 21:16 Influenza Type A Ag positive (Negative) H 06/10/23 19:45 Influenza Type B Ag negative (Negative) 06/10/23 19:45 SARS-CoV-2 Ag (Rapid) negative (Negative) 06/10/23 19:45 All radiology interpretation(s) finalized by discharge Discharge Plan Discharge Patient Disposition: Placed in Observation Admit Provider: Devin Meadows Clinical Impression: Diarrhea, Influenza A, UTI (urinary tract infection), Atrial fibrillation Coding Level of Care Code ED Clinical Appeals Rn for Angelina Kennedy
--- NOTE | 2023-06-11 17:12 | P.PN_ITS ---
Subjective 2 Subjective: Patient noted to have significant wheezing on exam this afternoon. She was tachypneic with respiratory rate of 25. Unable to talk to me in complete sentences. Medications: Reviewed: Yes Vitals/I&O/Wt Last Vital Signs Temp 98.7 F 06/11/23 16:00 Pulse 86 06/11/23 16:00 Resp 16 06/11/23 16:00 BP 159/73 06/11/23 16:00 Pulse Ox 94 06/11/23 15:38 O2 Del Method Room Air 06/11/23 15:38 06/11/23 06/11/23 06/11/23 06:59 14:59 22:59 Intake Total 50 / 1050 360 / 360 Output Total 225 / 225 200 / 200 Balance -175 / 825 160 / 160 Weight last 48 hrs Weight 86.381 kg Weight 87.09 kg Weight 95.254 kg Physical Exam 2 Narrative: General: Tachypneic, unable to complete full sentence. Saturating 94%. HEENT: PERRLA, pupils bilaterally equal and reactive, pallors not present Chest: Diffuse wheezing to auscultation bilaterally CVS: S1-S2 regular, no murmurs, no tachycardia, no gallops, no rubs Abdomen: Soft, nontender, no organomegaly, bowel sounds present Neuro: No focal deficits, no facial deformity, AO x3, power 5/5 in all limbs Extremities: no edema clubbing or cyanosis Data 06/10/23 19:40 06/10/23 19:40 Micro: Microbiology 06/11/23 00:45 Gram Stain - Final Sputum - Expectorated Sputum A&P Assessment and plan (1) Influenza A: (2) UTI (urinary tract infection): (3) Acute bronchitis: Plan Acute bronchitis likely triggered by influenza A infection. Start DuoNeb nebulization every 6 hours scheduled. Add budesonide 0.5 mg inhalation twice daily. Start IV steroids methylprednisolone 40 mg IV every 8 hours given diffuse bilateral wheezing. Patient lives alone at home, would not be safe to be discharged in her current state, changed to inpatient admission. Continue Tamiflu 75 mg p.o. twice daily Continue metoprolol 12.5 mg p.o. twice daily UTI, empirically on Rocephin, await urine culture Currently appearing to be euvolemic, discontinue IV fluids. A-fib with RVR in the emergency room, now resolved after resuming her home dose of medications including metoprolol Full code Xarelto for DVT prophylaxis Attestations 2 Medical Necessity Statement*: Changed to inpatient admission is needing IV steroids and [id number] nebulization Coding Level of Care Code Acute Code for [facility] Diagnoses Influenza A J10.1 UTI (urinary tract infection) N39.0 Acute bronchitis J20.9
[2023-06-11] MEDS: rivaroxaban 10 mg Tablet 20 MG PO (17:52)
[2023-06-11] MEDS: budesonide 0.5 mg/2 mL Neb INHALATION (20:35)
[2023-06-11] MEDS: cloNIDine 0.1 mg Tablet 0.2 MG PO (20:37)
[2023-06-11] MEDS: cefTRIAXone 1,000 MG in sodium chloride 0.9% (plus) 50 ML 100 MG IV (22:49)
[2023-06-12] VITALS (13 sets, daily range): BP systolic 135–165; BP diastolic 73–93; PULSE 69–101; RESP 16–20; TEMP 36.4–37.2; O2SAT 92–97
[2023-06-12] MEDS: ipratropium-albuterol 3 mL Neb INHALATION ×4 (02:28→20:41)
[2023-06-12 03:29] LABS: Hematocrit 40.5 % (36-47); Lymphocytes # 0.5 10^3/uL (0.8-4.8); Lymphocytes % 15.5 %; Mean Corpuscular HGB Conc 32.6 g/dL (30-55); Mean Corpuscular Hemoglobin 28.6 pg (27-33); Mean Corpuscular Volume 87.7 fl (85-98); Mean Platelet Volume 11.4 fL (7.4-10.4); Monocytes # 0.1 10^3/uL (0.2-0.9); Monocytes % 2.2 %; Neutrophils # 2.59 10^3/uL (1.8-7.7); Nucleated Red Blood Cells % 0 %; Platelet Count 158 10^3/cmm (157-399); Red Blood Count 4.62 10^6/uL (3.85-5.65); Red Cell Distribution Width 13.2 % (12.1-15.1); White Blood Count 3.16 10^3/uL (3.29-11.43)
[2023-06-12] MEDS: methylPREDNISolone sod succ 40 mg/mL INJ IVP ×3 (03:48→20:39)
[2023-06-12 03:54] LABS: Alanine Aminotransferase 21 U/L (0-33); Albumin Level 3.4 g/dL (3.5-5.2); Alkaline Phosphatase 55 U/L (35-105); Aspartate Amino Transferase 29 U/L (0-32); Blood Urea Nitrogen 20 mg/dL (8-23); Carbon Dioxide 26 mmol/L (22-29); Chloride 104 mmol/L (98-107); Globulin 3.1 g/dL (1.3-4.6); Glucose 172 mg/dL (65-115); Osmolality Calculated 293 mOsm/kg (285-295); Sodium 138 mmol/L (136-145); Total Bilirubin 0.3 mg/dL (0.15-1.2); Total Protein 6.5 g/dL (6.6-8.7)
[2023-06-12 03:55] LABS: Anion Gap 12.6 (5-19); Potassium 4.6 mmol/L (3.5-5.1)
[2023-06-12] MEDS: isosorbide mononitrate ER 30 mg Tablet 15 MG PO ×2 (08:45→17:07)
[2023-06-12] MEDS: metoprolol tartrate 25 mg Tablet 12.5 MG PO ×2 (08:45→17:07)
[2023-06-12] MEDS: pantoprazole DR 40 mg Tablet PO (08:46)
[2023-06-12] MEDS: citalopram 20 mg Tablet 10 MG PO (08:46)
[2023-06-12] MEDS: budesonide 0.5 mg/2 mL Neb INHALATION ×2 (09:05→20:41)
[2023-06-12] MEDS: oseltamivir phosphate 75 mg Capsule PO ×2 (12:12→22:19)
--- NOTE | 2023-06-12 14:53 | P.PN_ITS ---
Subjective 2 Subjective: Seen today. She feels well. Requesting to go home. However still feels slightly weak. Vitals/I&O/Wt Last Vital Signs Temp 97.7 F 06/12/23 12:00 Pulse 87 06/12/23 13:46 Resp 18 06/12/23 13:46 BP 150/73 06/12/23 12:00 Pulse Ox 97 06/12/23 13:46 O2 Del Method Room Air 06/12/23 13:46 06/11/23 06/12/23 06/12/23 22:59 06:59 14:59 Intake Total 1120 / 1480 50 / 1530 720 / 720 Output Total 200 / 400 Balance 1120 / 1280 -150 / 1130 720 / 720 Weight last 48 hrs Weight 87.713 kg Weight 86.381 kg Weight 87.09 kg Weight 95.254 kg Physical Exam 2 Narrative: General: On room air, no longer tachypneic. Appears well. No conversational dyspnea. Saturating 94%. HEENT: PERRLA, pupils bilaterally equal and reactive, pallors not present. Hard of hearing. States her hearing aid battery has . Chest: Diffuse wheezing but mild to auscultation bilaterally. Mostly clear to auscultation. CVS: S1-S2 regular, no murmurs, no tachycardia, no gallops, no rubs Abdomen: Soft, nontender, no organomegaly, bowel sounds present Neuro: No focal deficits, no facial deformity, AO x3, power 5/5 in all limbs Extremities: no edema clubbing or cyanosis Data 06/13/23 04:46 06/13/23 04:46 Micro: Microbiology 06/11/23 00:45 Gram Stain - Final Sputum - Expectorated Sputum Sputum Culture - Preliminary 06/10/23 21:16 Urine Culture - Preliminary Urine,Clean Catch Gram Negative Rods A&P Assessment and plan (1) Influenza A: (2) UTI (urinary tract infection): (3) Acute bronchitis: Plan Acute bronchitis likely triggered by influenza A infection. Start DuoNeb nebulization every 6 hours scheduled. Add budesonide 0.5 mg inhalation twice daily. Start IV steroids methylprednisolone 40 mg IV every 8 hours given diffuse bilateral wheezing. Patient lives alone at home, would not be safe to be discharged in her current state, changed to inpatient admission. Continue Tamiflu 75 mg p.o. twice daily Continue metoprolol 12.5 mg p.o. twice daily UTI, empirically on Rocephin, await urine culture Currently appearing to be euvolemic, discontinue IV fluids. A-fib with RVR in the emergency room, now resolved after resuming her home dose of medications including metoprolol Assessment plan reviewed from admitting physician. Continue above course for now. Full code Xarelto for DVT prophylaxis Attestations 2 Medical Necessity Statement*: Changed to inpatient admission is needing IV steroids and [id number] nebulization Diagnoses Influenza A J10.1 UTI (urinary tract infection) N39.0 Acute bronchitis J20.9
[2023-06-12] MEDS: rivaroxaban 10 mg Tablet 20 MG PO (17:07)
[2023-06-12] MEDS: cloNIDine 0.1 mg Tablet 0.2 MG PO (20:38)
[2023-06-12] MEDS: cefTRIAXone 1,000 MG in sodium chloride 0.9% (plus) 50 ML 100 MG IV (22:19)
[2023-06-13] VITALS (7 sets, daily range): BP systolic 154–178; BP diastolic 81–99; PULSE 80–100; RESP 18–20; TEMP 36.2–36.6; O2SAT 94–97
[2023-06-13] MEDS: methylPREDNISolone sod succ 40 mg/mL INJ IVP (04:01)
[2023-06-13 05:42] LABS: Hematocrit 39.1 % (36-47); Lymphocytes % 8.8 %; Mean Corpuscular HGB Conc 32.5 g/dL (30-55); Mean Corpuscular Hemoglobin 28.6 pg (27-33); Mean Corpuscular Volume 88.1 fl (85-98); Mean Platelet Volume 12.3 fL (7.4-10.4); Monocytes # 0.3 10^3/uL (0.2-0.9); Monocytes % 2.5 %; Neutrophils # 9.52 10^3/uL (1.8-7.7); Neutrophils % 88.4 %; Nucleated Red Blood Cells % 0 %; Platelet Count 176 10^3/cmm (157-399); Red Blood Count 4.44 10^6/uL (3.85-5.65); Red Cell Distribution Width 13.1 % (12.1-15.1); White Blood Count 10.77 10^3/uL (3.29-11.43)
[2023-06-13 06:07] LABS: Anion Gap 15.3 (5-19); Blood Urea Nitrogen 25 mg/dL (8-23); Calcium 9.5 mg/dL (8.5-10.5); Carbon Dioxide 25 mmol/L (22-29); Chloride 102 mmol/L (98-107); Glucose 148 mg/dL (65-115); Magnesium 2.1 mg/dL (1.7-2.3); Osmolality Calculated 293 mOsm/kg (285-295); Potassium 4.3 mmol/L (3.5-5.1); Sodium 138 mmol/L (136-145)
[2023-06-13] MEDS: ipratropium-albuterol 3 mL Neb INHALATION (09:44)
[2023-06-13] MEDS: budesonide 0.5 mg/2 mL Neb INHALATION (09:44)
[2023-06-13] MEDS: isosorbide mononitrate ER 30 mg Tablet 15 MG PO (10:06)
[2023-06-13] MEDS: metoprolol tartrate 25 mg Tablet 12.5 MG PO (10:07)
[2023-06-13] MEDS: citalopram 20 mg Tablet 10 MG PO (10:07)
[2023-06-13] MEDS: pantoprazole DR 40 mg Tablet PO (10:08)
[2023-06-13] MEDS: oseltamivir phosphate 75 mg Capsule PO (12:26)
--- NOTE | 2023-06-13 12:40 | P.DS_ITS ---
Discharge Providers Date of Admission: 06/11/23 17:10 Date of Discharge: June 12, 2023 Attending Provider at Admission: Devin Meadows MD Attending Provider at Discharge: Lise Seals MD Primary Care Provider: CATHERINE Rowe Diagnoses at Discharge Discharge Diagnosis (1) Influenza A: Status: Acute (2) UTI (urinary tract infection): Status: Acute (3) Acute bronchitis: Status: Acute Reason for Visit Reason for Visit: RIB PAIN S/P COUGH Brief History: Cristina Rock is a 87 year old female with a past medical history of atrial fibrillation, on Xarelto, hypertension, who presents to [facility] due to fatigue, malaise, wheezing, shortness of breath. Patient tells me for the last 24 hours, she is feeling weak, fatigued, tired, shortness of breath, nonproductive cough, no dysuria, no hematuria no flank pain, no abdominal pain, Hospital Course Hospital Course Patient was admitted for weakness, fatigue, shortness of breath, nonproductive cough. She was found to be positive for influenza A infection. Ruled in for acute bronchitis. Placed on steroids Tamiflu. Also found to have a UTI which was E. coli pansensitive. Patient also had a brief episode of A-fib RVR in ER which has been controlled by her home dose of metoprolol. Patient to go home today in stable condition. She will complete her 5 days of Tamiflu, steroid course and a cephalosporin for UTI. All questions answered. Patient feels well and requesting to go home today. Physical Exam Narrative: General: On room air, no longer tachypneic. Appears well. No conversational dyspnea. Saturating 94%. HEENT: PERRLA, pupils bilaterally equal and reactive, pallors not present. Hard of hearing. Chest: Clear to auscultation bilaterally no wheezes no rhonchi. CVS: S1-S2 regular, no murmurs, no tachycardia, no gallops, no rubs Abdomen: Soft, nontender, no organomegaly, bowel sounds present Neuro: No focal deficits, no facial deformity, AO x3, power 5/5 in all limbs Extremities: no edema clubbing or cyanosis Discharge Data Studies Completed and Pending Completed Studies During Hospitalization Category Date Time Status XR chest 1V 53219 Stat Exams 06/10/23 18:31 Completed Pending at discharge Category Date Time Status Sputum Culture and Gram Stain Stat Lab 06/10/23 22:45 Results Urine Culture Stat Lab 06/10/23 21:16 Results Radiology Impressions Chest X-Ray 06/10/23 18:31 IMPRESSION: No acute findings. Laboratory Results WBC 3.16 10^3/uL (3.29-11.43) L 06/12/23 02:39 RBC 4.62 10^6/uL (3.85-5.65) 06/12/23 02:39 Hgb 13.20 g/dL (11.27-16.99) 06/12/23 02:39 Hct 40.5 % (36-47) 06/12/23 02:39 MCV 87.7 fl (85-98) 06/12/23 02:39 MCH 28.6 pg (27-33) 06/12/23 02:39 MCHC 32.6 g/dL (30-55) 06/12/23 02:39 RDW 13.2 % (12.1-15.1) 06/12/23 02:39 Plt Count 158 10^3/cmm (157-399) 06/12/23 02:39 MPV 11.4 fL (7.4-10.4) H 06/12/23 02:39 Neut % (Auto) 82.0 % 06/12/23 02:39 Lymph % (Auto) 15.5 % 06/12/23 02:39 Elliott % (Auto) 2.2 % 06/12/23 02:39 Eos % (Auto) 0.0 % 06/12/23 02:39 Baso % (Auto) 0.0 % 06/12/23 02:39 Neut # (Auto) 2.59 10^3/uL (1.8-7.7) 06/12/23 02:39 Lymph # (Auto) 0.5 10^3/uL (0.8-4.8) L 06/12/23 02:39 Elliott # (Auto) 0.1 10^3/uL (0.2-0.9) L 06/12/23 02:39 Eos # (Auto) 0.0 10^3/uL (0.0-0.8) 06/12/23 02:39 Baso # (Auto) 0.0 10^3/uL (0.0-0.1) 06/12/23 02:39 Nucleated RBC % (auto) 0 % 06/12/23 02:39 Nucleated RBCs # 0.0 /100WBC 06/12/23 02:39 Sodium 138 mmol/L (136-145) 06/12/23 02:39 Potassium 4.6 mmol/L (3.5-5.1) 06/12/23 02:39 Chloride 104 mmol/L (98-107) 06/12/23 02:39 Carbon Dioxide 26 mmol/L (22-29) 06/12/23 02:39 Anion Gap 12.6 (5-19) 06/12/23 02:39 BUN 20 mg/dL (8-23) 06/12/23 02:39 Creatinine 0.7 mg/dL (0.5-0.9) 06/12/23 02:39 GFR Calculation Not Reportable 06/12/23 02:39 Glucose 172 mg/dL (65-115) H 06/12/23 02:39 Calculated Osmolality 293 mOsm/kg (285-295) 06/12/23 02:39 Calcium 9.0 mg/dL (8.5-10.5) 06/12/23 02:39 Total Bilirubin 0.3 mg/dL (0.15-1.2) 06/12/23 02:39 AST 29 U/L (0-32) 06/12/23 02:39 ALT 21 U/L (0-33) 06/12/23 02:39 Alkaline Phosphatase 55 U/L (35-105) 06/12/23 02:39 C-Reactive Protein 27.1 mg/L (0.0-4.9) H 06/10/23 19:40 Total Protein 6.5 g/dL (6.6-8.7) L 06/12/23 02:39 Albumin 3.4 g/dL (3.5-5.2) L 06/12/23 02:39 Globulin 3.1 g/dL (1.3-4.6) 06/12/23 02:39 Procalcitonin 0.05 ng/mL (0-0.5) 06/10/23 19:40 TSH 0.51 uIU/mL (0.27-4.20) 06/10/23 19:40 Urine Color Yellow (Yellow) 06/10/23 21:16 Urine Appearance Cloudy (CLEAR) A 06/10/23 21:16 Urine pH 6 (5-7) 06/10/23 21:16 Ur Specific [place] 1.015 (1.005-1.030) 06/10/23 21:16 Urine Protein 2+ (Negative) H 06/10/23 21:16 Urine Glucose (UA) Norm (Normal) 06/10/23 21:16 Urine Ketones 1+ (Negative) H 06/10/23 21:16 Urine Blood 3+ (Negative) H 06/10/23 21:16 Urine Nitrate Negative (Negative) 06/10/23 21:16 Urine Bilirubin Neg (Negative) 06/10/23 21:16 Urine Urobilinogen Norm mg/dL (Negative) 06/10/23 21:16 Ur Leukocyte Esterase 2+ (Negative) H 06/10/23 21:16 Urine RBC 25-40 /hpf (0-2) H 06/10/23 21:16 Urine WBC 55-80 /hpf (0-5) H 06/10/23 21:16 Ur Squamous Epith Cells 5-10 /hpf (0-5) H 06/10/23 21:16 Amorphous Sediment Not Reportable 06/10/23 21:16 Urine Bacteria 4+ /hpf (NONE) H 06/10/23 21:16 Urine Mucus 2+ /hpf 06/10/23 21:16 Influenza Type A Ag positive (Negative) H 06/10/23 19:45 Influenza Type B Ag negative (Negative) 06/10/23 19:45 SARS-CoV-2 Ag (Rapid) negative (Negative) 06/10/23 19:45 Vitals Last Vital Signs Temp 97.6 F 06/12/23 07:22 Pulse 84 06/12/23 09:05 Resp 16 06/12/23 09:05 BP 149/85 06/12/23 07:22 Pulse Ox 96 06/12/23 09:05 O2 Del Method Room Air 06/12/23 09:05 Discharge Plan Discharge Patient Disposition: Home Condition: Stable Prescriptions: New Tamiflu 75 mg capsule 75 mg PO BID 3 Days Qty: 6 0RF prednisone 20 mg tablet 40 mg PO DAILY 3 Days Qty: 6 0RF cefpodoxime 200 mg tablet 200 mg PO BID 5 Days Qty: 10 0RF Rx Instructions: must administer with a meal/food Continued budesonide-formoterol [Symbicort] 160-4.5 mcg/actuation HFA aerosol inhaler See Rx Instructions .ROUTE .COMPLEX Qty: 10.2 12RF Dose Instruction: INHALE 1 PUFF BY MOUTH TWICE DAILY. Rx Instructions: INHALE 1 PUFF BY MOUTH TWICE DAILY. albuterol sulfate 90 mcg/actuation HFA aerosol inhaler See Rx Instructions .ROUTE .COMPLEX Qty: 18 12RF Dose Instruction: INJECT TWO PUFFS EVERY 6 HOURS NEEDED FOR SHORTNESS OF BREATH Rx Instructions: INJECT TWO PUFFS EVERY 6 HOURS NEEDED FOR SHORTNESS OF BREATH Xarelto 20 mg tablet See Rx Instructions .ROUTE .COMPLEX Qty: 90 3RF Dose Instruction: TAKE ONE TABLET BY MOUTH EVERY DAY; must take with evening meal Rx Instructions: TAKE ONE TABLET BY MOUTH EVERY DAY; must take with evening meal nitroglycerin [Nitrostat] 0.4 mg tablet, sublingual 0.4 mg SUBLINGUAL Q5M PRN (Reason: chest pain) Qty: 20 2RF diclofenac sodium [Voltaren Arthritis Pain] 1 % gel 2 g topical QID Qty: 100 0RF Rx Instructions: apply to single elbow, wrist or hand; for hand includes palm/fingers/back of hand isosorbide mononitrate 30 mg tablet extended release 24 hr See Rx Instructions .ROUTE .COMPLEX Qty: 90 1RF Dose Instruction: TAKE 1/2 TABLET BY MOUTH TWICE DAILY Rx Instructions: TAKE 1/2 TABLET BY MOUTH TWICE DAILY clonidine HCl 0.2 mg tablet See Rx Instructions .ROUTE .COMPLEX Qty: 90 1RF Dose Instruction: TAKE ONE TABLET BY MOUTH EVERY DAY AT BEDTIME. Rx Instructions: TAKE ONE TABLET BY MOUTH EVERY DAY AT BEDTIME. metoprolol tartrate 25 mg tablet See Rx Instructions .ROUTE .COMPLEX Qty: 90 1RF Dose Instruction: TAKE 1/2 TABLET BY MOUTH TWICE DAILY. Rx Instructions: TAKE 1/2 TABLET BY MOUTH TWICE DAILY. furosemide 20 mg tablet See Rx Instructions .ROUTE .COMPLEX Qty: 180 0RF Dose Instruction: TAKE ONE TABLET BY MOUTH TWICE DAILY Rx Instructions: TAKE ONE TABLET BY MOUTH TWICE DAILY Vitamin C 500 mg Tablet 500 mg PO BID losartan 25 mg tablet 25 mg PO DAILY Vitamin D3 50 mcg (2,000 unit) Tablet 100 mcg PO DAILY PreserVision AREDS-2 250-90-40-1 mg Capsule 1 tab PO BID turmeric 400 mg Capsule 400 mg PO DAILY vitamin E (dl, acetate) 180 mg (400 unit) Capsule 180 mg PO DAILY Discharge Orders: Discharge Order (Routine); Ordered 06/13/23 Ordered By: Lise Seals Referrals: Eloina Karimi FNP [Primary Care Provider] - 06/14/23 1:20 pm Discharge Diet: Cardiac Discharge Activity: Resume usual activity Patient Instructions: Bronchitis (Acute) - Adult, Prednisone (By mouth) (predniSONE Intensol, Prednicot, Deltasone, Cholo), Cefpodoxime Proxetil (By mouth) (Vantin), Oseltamivir (By mouth) (Tamiflu), Urinary Tract Infection in Women (DC), Influenza (DC), Opioid Safety Activity Restrictions/Additional Instructions: Please follow up with PCP and return to ER if symptoms worsen. Discharge Attestations Time Spent in Discharge Care*: less than 30 min Quality Metrics Clinical Quality Measures [ No reported AMI, CVA or VTE this stay] Coding Level of Care Code 25957 Total time (in minutes) for Discharge: 35 Diagnoses Influenza A J10.1 UTI (urinary tract infection) N39.0 Acute bronchitis J20.9
== END 2023-06-13 12:57 | disposition home or self-care (01) | DRG 194 ==
LOC: ER 19:11 → MEDSURG 22:56
PROVIDERS: Physician Assistant; Student in an Organized Health Care Education/Training Program; Admitting Provider Family Medicine; Emergency Provider Emergency Medicine; PCP Nurse Practitioner Family; Visit Provider Internal Medicine
DX: J10.1 Influenza due to other identified influenza virus with other respiratory manifestations (principal); I48.20 Chronic atrial fibrillation, unspecified; N39.0 Urinary tract infection, site not specified; B96.20 Unspecified Escherichia coli [E. coli] as the cause of diseases classified elsewhere; E86.0 Dehydration; R00.0 Tachycardia, unspecified; R19.7 Diarrhea, unspecified; Z79.01 Long term (current) use of anticoagulants; F03.90 Unspecified dementia, unspecified severity, without behavioral disturbance, psychotic disturbance, mood disturbance, and anxiety; I10 Essential (primary) hypertension; E78.5 Hyperlipidemia, unspecified; M17.12 Unilateral primary osteoarthritis, left knee; M19.011 Primary osteoarthritis, right shoulder
CPT/HCPCS: 36415; 71045; 80048; 80053; 81001; 83735; 84145; 84443; 85025; 86140; 87070; 87077; 87086; 87186; 87205; 87426; 87804; 90471; 90686; 93005; 94640; 94664; 96365; 97116; 97161; 97167; 97530; 99285; C9113; G0378; J0696; J2920; J7030; J7613; J7626

== ENCOUNTER → 2023-08-23 13:00 | Outpatient (BNVA) | payer MEDICARE, OTHER, SELFPAY | PROVIDERS: PCP Nurse Practitioner Family; Visit Provider Internal Medicine | DX: I11.0 Hypertensive heart disease with heart failure (principal); I50.30 Unspecified diastolic (congestive) heart failure; I48.91 Unspecified atrial fibrillation; Z79.01 Long term (current) use of anticoagulants | CPT/HCPCS: 99214 ==

== ENCOUNTER → 2023-08-29 11:31 | Outpatient (BNVA) | payer MEDICARE, OTHER, SELFPAY | PROVIDERS: PCP Nurse Practitioner Family; Visit Provider Nurse Practitioner Family | DX: R05.9 Cough, unspecified (principal); N39.0 Urinary tract infection, site not specified; R41.3 Other amnesia | CPT/HCPCS: 81003; 87086; 87400; 87426 ==

== ENCOUNTER → 2023-10-18 14:26 | Outpatient (BNVA) | payer MEDICARE, OTHER, SELFPAY | PROVIDERS: PCP Nurse Practitioner Family; Visit Provider Nurse Practitioner Family | DX: R30.0 Dysuria (principal); N39.0 Urinary tract infection, site not specified | CPT/HCPCS: 81003 ==

== ENCOUNTER → 2023-10-26 10:14 | Outpatient (BNVA) | payer MEDICARE, OTHER, SELFPAY | PROVIDERS: PCP Nurse Practitioner Family; Visit Provider Nurse Practitioner Family | DX: E53.8 Deficiency of other specified B group vitamins (principal); E04.1 Nontoxic single thyroid nodule; E55.9 Vitamin D deficiency, unspecified; E78.2 Mixed hyperlipidemia; R73.9 Hyperglycemia, unspecified; R41.3 Other amnesia; Z79.899 Other long term (current) drug therapy | CPT/HCPCS: 80053; 80061; 81003; 82306; 82607; 83036; 84443; 85025; 87086 ==

== ENCOUNTER → 2024-02-14 12:15 | Outpatient (BNVA) | payer MEDICARE, OTHER, SELFPAY | PROVIDERS: PCP Nurse Practitioner Family; Visit Provider Nurse Practitioner Family | DX: R07.9 Chest pain, unspecified (principal); E78.2 Mixed hyperlipidemia; I50.30 Unspecified diastolic (congestive) heart failure | CPT/HCPCS: 80053; 80061; 81000; 82607; 84443; 85025 ==

== ENCOUNTER → 2024-02-22 13:28 | Outpatient (BNVA) | payer MEDICARE, OTHER, SELFPAY | PROVIDERS: PCP Nurse Practitioner Family; Visit Provider Internal Medicine | DX: I48.91 Unspecified atrial fibrillation (principal); Z79.01 Long term (current) use of anticoagulants; I11.0 Hypertensive heart disease with heart failure; I50.33 Acute on chronic diastolic (congestive) heart failure | CPT/HCPCS: 99213 ==

== ENCOUNTER → 2024-03-19 11:43 | Outpatient (BNVA) | payer MEDICARE, OTHER, SELFPAY | PROVIDERS: PCP Nurse Practitioner Family; Visit Provider Nurse Practitioner Family | DX: R39.9 Unspecified symptoms and signs involving the genitourinary system (principal) | CPT/HCPCS: 81000 ==

== ENCOUNTER 2024-03-22 14:36 | Outpatient (CLI) | payer MEDICARE, OTHER, SELFPAY ==
--- NOTE | 2024-03-22 15:00 | USCV_ITS ---
Cristina Rock Age: 88 Gender: F : 1935 Exam Date: 03/22/2024 15:20 Ordering Phys: Alireza Haile M.D ([email or web address]) Technologist: [place] [facility] [place]: BP: 134 / 76 HR: 87 Rhythm: Sinus Technical Quality: Adequate MEASUREMENTS (Male / Female) Normal Values 2D ECHO LVOT Diameter 2.0 cm LV Ejection Fraction MOD 4C 43.3 % LV Ejection Fraction MOD 2C 60.9 % LV Ejection Fraction 2C AL 61.4 % LA Diameter 4.0 cm RA Systolic Volume 4C AL 55.4 ml RA Systolic Volume 4C MOD 54.6 ml LA Sys Volume AL 76.9 cm cubed LA Sys Volume Index AL 38.1 cm cubed/m squared Aorta at Sinotubular Diameter 1.9 cm IVC Diameter 2.3 cm M-MODE LA Ao Ratio MM 1.7 AV Cusp Separation MM 2.0 cm DOPPLER AV Peak Velocity 119.0 cm/s LVOT Peak Velocity 106.0 cm/s AV Area Cont Eq vti 3.7 cm squared AV Area Cont Eq pk 2.9 cm squared MV Peak Velocity 404.7 cm/s MV Area PHT 3.9 cm squared Mitral E to A Ratio 2.6 TV Peak Velocity 304.0 cm/s TR Peak Velocity 326.0 cm/s TR Peak Gradient 42.5 mmHg TV Peak E Velocity 84.0 cm/s Right Atrial Pressure 3.0 mmHg Pulmonary Artery Systolic Pressu 45.5 mmHg PV Peak Velocity 93.5 cm/s FINDINGS Left Ventricle Normal left ventricular size, systolic function and wall thickness, with no regional wall motion abnormalities. Left ventricular ejection fraction is estimated at 55 %. Grade II/IV diastolic dysfunction, moderately elevated filling pressures. Right Ventricle Normal right ventricular size. Mild pulmonary hypertension, RVSP 45.5 mmHg. Right Atrium The right atrium is normal in size. Left Atrium Moderately increased left atrial size. Mitral Valve Thickened mitral valve. No mitral valve stenosis. Mild mitral valve regurgitation. Aortic Valve Moderate aortic valve calcification. No aortic valve stenosis. Trace aortic valve regurgitation. Tricuspid Valve Thickened tricuspid valve. Moderate tricuspid valve regurgitation. Pulmonic Valve Structurally normal pulmonic valve without significant stenosis. There is no pulmonic regurgitation. Pericardium Normal pericardium without effusion. Aorta Normal ascending aorta dimension. IVC The inferior vena cava appears normal. CONCLUSIONS Normal left ventricular size, systolic function and wall thickness, with no regional wall motion abnormalities. Left ventricular ejection fraction is estimated at 55 %. Grade II/IV diastolic dysfunction, moderately elevated filling pressures. Normal right ventricular size. Mild pulmonary hypertension, RVSP 45.5 mmHg. Moderately increased left atrial size. Thickened tricuspid valve. Moderate tricuspid valve regurgitation. Right atrial pressure is around 5 mm of mercury. Iza Benjamin MD (Electronically Signed) Final Date: 26 March 2024 21:29 S
== END 2024-03-22 14:37 | disposition home or self-care (01) ==
LOC: RAD 14:38
PROVIDERS: PCP Nurse Practitioner Family; Visit Provider Internal Medicine
DX: I50.30 Unspecified diastolic (congestive) heart failure (principal); I51.7 Cardiomegaly; I34.81 Nonrheumatic mitral (valve) annulus calcification; I70.0 Atherosclerosis of aorta; I36.2 Nonrheumatic tricuspid (valve) stenosis with insufficiency; R06.02 Shortness of breath
CPT/HCPCS: 93306

== ENCOUNTER 2024-08-01 18:51 | Emergency (ER) | payer MEDICARE, OTHER, SELFPAY ==
[2024-08-01] VITALS (7 sets, daily range): BP systolic 112–186; BP diastolic 70–121; PULSE 75–84; RESP 16–18; TEMP 36.4; O2SAT 91–96; BMI 32.1
--- NOTE | 2024-08-01 19:19 | W.ED.GENADLT ---
HPI - General Adult General: Chief complaint: General Medical Stated complaint: hypertension Time Seen by Provider: 08/01/24 18:58 Source: patient and EMS Mode of arrival: EMS Limitations: no limitations History of Present Illness: Comes in via ambulance because physical therapy went to her house to do PT work with her and found her to have asymptomatic hypertension and sent her to the ER. Patient has absolutely no complaints. Related Data Home Medications ?Medication ?Instructions ?Recorded ?Confirmed ascorbic acid (vitamin C) 500 mg 500 mg PO BID 06/11/23 03/25/24 tablet (Vitamin C) cholecalciferol (vitamin D3) 50 100 mcg PO DAILY 06/11/23 03/25/24 mcg (2,000 unit) tablet (Vitamin D3) vit C 250 mg-vit E 90 mg-zinc 40 1 tab PO BID 06/11/23 03/25/24 mg-copper 1 [id number] capsule (PreserVision AREDS-2) vitamin E (dl, acetate) 180 mg 180 mg PO DAILY 06/11/23 03/25/24 (400 unit) capsule Previous Rx's ?Medication ?Instructions ?Recorded nitroglycerin 0.4 mg sublingual 0.4 mg sublingual Q5M PRN chest 06/28/21 tablet (Nitrostat) pain #20 tabs albuterol sulfate 90 mcg/actuation See Rx Instructions .Route 12/26/22 aerosol inhaler .COMPLEX #18 grams budesonide 160 mcg-glycopyr 9 2 inh inhalation BID #10.7 grams 08/18/23 mcg-formot 4.8 mcg/actuation HFA inhaler (Breztri Aerosphere) metoprolol tartrate 25 mg tablet 12.5 mg (1/2 x 25 mg) PO BID #90 08/23/23 tabs albuterol sulfate 2.5 mg/3 mL 2.5 mg (3 mL) inhalation QID PRN 08/29/23 (0.083 %) solution for nebulization shortness of breath or wheezing #180 mL nebulizer machine, tubing and #1 ea 08/29/23 delivery device clonidine HCl 0.2 mg tablet See Rx Instructions .Route 10/02/23 .COMPLEX #90 tabs ondansetron 4 mg disintegrating 4 mg PO Q8H PRN nausea and 10/03/23 tablet vomiting 7 days #21 tabs rivaroxaban 20 mg tablet (Xarelto) See Rx Instructions .Route 01/01/24 .COMPLEX #90 tabs cyanocobalamin (vitamin B-12) 1,000 mcg IM .monthly #1 mL 01/16/24 1,000 mcg/mL injection solution isosorbide mononitrate 30 mg See Rx Instructions .Route 03/21/24 tablet,extended release 24 hr .COMPLEX #90 tabs losartan 25 mg tablet See Rx Instructions .Route 03/28/24 .COMPLEX #90 tabs citalopram 10 mg tablet See Rx Instructions .Route 06/25/24 .COMPLEX #30 tabs Allergies Allergy/AdvReac Type Severity Reaction Status Date / Time No Known Allergies Allergy Verified 03/25/24 13:14 Review of Systems General: Reports: 10 or more systems reviewed and unremarkable except in HPI and below PFSH ED PFSH: Medical History Enrolled in chronic care management Dementia 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 Elevated liver enzymes Primary osteoarthritis of left knee Pernicious anemia 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 Diastolic congestive heart failure Dyslipidemia Essential hypertension Emphysema lung Statin intolerance Hyperlipemia Atrial fibrillation Fatigue Hypertension Shortness of breath Surgical History History of cholecystectomy History of appendectomy History of back surgery Family History Other Heart disease Hypertension Social History Smoking and tobacco/nicotine status: never used tobacco/nicotine Second hand smoke exposure: No Alcohol intake: never Substance/Drug Use: never Lives independently: Yes Household members: none Housing: House Marital status: / service: No Current occupational status: retired Pets and animals: Yes Current gender identity: Female Special james needs: No Agree to transfusion: Yes Physical Exam Const: COMMON NORMALS: no acute distress, average body habitus, patient oriented x3, healthy appearing, alert and well nourished GENERAL APPEARANCE: well kempt and well developed HENMT: COMMON NORMALS: normocephalic, atraumatic, external ears normal and moist oral mucous membranes HEAD & SCALP: normocephalic and atraumatic EXTERNAL EAR: Yes external ears normal Eye: COMMON NORMALS: Equal, round and reactive pupils present, EOMs intact bilaterally and conjunctivae normal CONJUNCTIVA: Yes conjunctivae normal PUPIL: Yes Equal, round and reactive pupils present Neck/C-Spine: COMMON NORMALS: full ROM, no lymphadenopathy and supple Chest: CHEST: Yes Symmetrical chest wall rise and No Surgical scars present (Chest) Resp: COMMON NORMALS: normal respiratory effort, No retractions, No use of accessory muscles and clear to auscultation bilaterally AUSCULTATION: clear to auscultation bilaterally Cardio: COMMON NORMALS: regular rate, regular rhythm, S1 normal heart sound present, S2 normal heart sound present, No gallops present (Cardio), No clicks present (Cardio), No murmurs present (Cardio) and No rub (Cardio) RATE: regular rate RHYTHM: regular rhythm HEART SOUNDS: S1 normal heart sound present, S2 normal heart sound present and no murmurs PERIPHERAL PULSES: other (Radial pulses 2+ and symmetric) GI: COMMON NORMALS: Soft to palpation, non-tender and no masses INSPECTION: No abdominal distension PALPATION: Yes Soft to palpation, No Guarding due to palpation present (GI) and No Rebound tenderness present : COMMON NORMALS: Yes no CVA tenderness BLADDER/KIDNEY EXAM: Yes no CVA tenderness Back/Pelvis: COMMON NORMALS: no CVA tenderness Extremity: COMMON NORMALS: normal to inspection, full ROM, capillary refill normal and no clubbing, cyanosis or edema Neuro: COMMON NORMALS: patient oriented x3 SENSORIUM/ORIENTATION: Yes alert Psych: APPEARANCE: Yes well kempt Skin: COMMON NORMALS: no rashes or lesions noted, no wounds, turgor normal and no jaundice GENERAL SKIN EXAM: no rashes or lesions noted and turgor normal Course Vital Signs: Vital signs: Vital Signs Temperature 97.6 F 08/01/24 18:52 Pulse Rate 77 08/01/24 20:40 Respiratory Rate 16 08/01/24 19:27 Blood Pressure 112/79 08/01/24 20:40 Pulse Oximetry 91 08/01/24 20:40 Oxygen Delivery Me thod Room Air 08/01/24 20:40 MDM - General Adult Medical Decision Making Patient given a dose of her nighttime clonidine. Can go home and take the rest of her medications. Patient has asymptomatic hypertension which per guidelines from [facility] as well as [facility] is not an emergency and should not be treated with IV meds. Patient to follow-up with her primary care within 1 week. Medical Records I reviewed the patient's medical records. No radiology studies performed this visit Discharge Plan Discharge Patient Disposition: Home Clinical Impression: Asymptomatic hypertension Condition: Stable Prescriptions: No Action albuterol sulfate 90 mcg/actuation HFA aerosol inhaler See Rx Instructions .ROUTE .COMPLEX Qty: 18 12RF Dose Instruction: INJECT TWO PUFFS EVERY 6 HOURS NEEDED FOR SHORTNESS OF BREATH Rx Instructions: INJECT TWO PUFFS EVERY 6 HOURS NEEDED FOR SHORTNESS OF BREATH (DME) nebulizer machine, tubing and delivery device See Rx Instructions .Route .MEDSUPPLY Qty: 1 0RF Rx Instructions: As directed albuterol sulfate 2.5 mg /3 mL (0.083 %) solution for nebulization 2.5 mg inhalation QID PRN (Reason: shortness of breath or wheezing) Qty: 180 1RF metoprolol tartrate 25 mg tablet 12.5 mg PO BID Qty: 90 3RF Breztri Aerosphere 160-9-4.8 mcg/actuation HFA aerosol inhaler 2 inh inhalation BID Qty: 10.7 5RF cyanocobalamin (vitamin B-12) 1,000 mcg/mL solution 1,000 mcg IM .monthly Qty: 1 12RF nitroglycerin [Nitrostat] 0.4 mg tablet, sublingual 0.4 mg SUBLINGUAL Q5M PRN (Reason: chest pain) Qty: 20 2RF clonidine HCl 0.2 mg tablet See Rx Instructions .ROUTE .COMPLEX Qty: 90 3RF Dose Instruction: TAKE ONE TABLET BY MOUTH EVERY DAY AT BEDTIME. Rx Instructions: TAKE ONE TABLET BY MOUTH EVERY DAY AT BEDTIME. ondansetron 4 mg tablet,disintegrating 4 mg PO Q8H PRN (Reason: nausea and vomiting) 7 Days Qty: 21 0RF Xarelto 20 mg tablet See Rx Instructions .ROUTE .COMPLEX Qty: 90 3RF Dose Instruction: TAKE ONE TABLET BY MOUTH EVERY DAY; must take with evening meal Rx Instructions: TAKE ONE TABLET BY MOUTH EVERY DAY; must take with evening meal isosorbide mononitrate 30 mg tablet extended release 24 hr See Rx Instructions .ROUTE .COMPLEX Qty: 90 1RF Dose Instruction: TAKE 1/2 TABLET BY MOUTH TWICE DAILY Rx Instructions: TAKE 1/2 TABLET BY MOUTH TWICE DAILY losartan 25 mg tablet See Rx Instructions .ROUTE .COMPLEX Qty: 90 1RF Dose Instruction: TAKE ONE TABLET BY MOUTH DAILY Rx Instructions: TAKE ONE TABLET BY MOUTH DAILY citalopram 10 mg tablet See Rx Instructions .ROUTE .COMPLEX Qty: 30 2RF Dose Instruction: TAKE ONE TABLET BY MOUTH DAILY Rx Instructions: TAKE ONE TABLET BY MOUTH DAILY Vitamin C 500 mg Tablet 500 mg PO BID Vitamin D3 50 mcg (2,000 unit) Tablet 100 mcg PO DAILY PreserVision AREDS-2 250-90-40-1 mg Capsule 1 tab PO BID vitamin E (dl, acetate) 180 mg (400 unit) Capsule 180 mg PO DAILY Discharge Orders: Discharge ED (Routine); Ordered 08/01/24 Ordered By: Howard Connor Referrals: Eloina Karimi FNP [Primary Care Provider] - Discharge Diet: Usual diet Discharge Activity: Resume usual activity Patient Instructions: Hypertension in the Older Adult (ED) Activity Restrictions/Additional Instructions: Hold tonight's clonidine dose as we gave it here in the ER. Print Language: Mexican Coding Level of Care Code ED Artists' Booking Representative for Angelina Kennedy
[2024-08-01] MEDS: cloNIDine 0.1 mg Tablet 0.2 MG PO (19:24)
== END 2024-08-01 21:15 | disposition home or self-care (01) ==
PROVIDERS: Emergency Provider Emergency Medicine; PCP Nurse Practitioner Family
DX: I11.0 Hypertensive heart disease with heart failure (principal); I50.30 Unspecified diastolic (congestive) heart failure; E78.5 Hyperlipidemia, unspecified
CPT/HCPCS: 99283; J9999

== ENCOUNTER → 2024-08-06 14:47 | Outpatient (BNVA) | payer MEDICARE, OTHER, SELFPAY | PROVIDERS: PCP Nurse Practitioner Family; Visit Provider Nurse Practitioner Family | DX: R35.0 Frequency of micturition (principal) | CPT/HCPCS: 81003; 87086 ==

== ENCOUNTER → 2025-01-20 13:03 | Outpatient (BNVA) | payer MEDICARE, OTHER, SELFPAY | PROVIDERS: PCP Nurse Practitioner Family; Visit Provider Nurse Practitioner Family | DX: N30.00 Acute cystitis without hematuria (principal); R41.3 Other amnesia | CPT/HCPCS: 81000; 87077; 87086; 87184 ==

== ENCOUNTER 2025-05-10 20:52 | Emergency (ER) | payer MEDICARE, OTHER, SELFPAY ==
--- OUTSIDE RECORDS SUMMARY | 2025-05-10 20:56 | XMS_ITS | Encounter Summary ---
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
--- OUTSIDE RECORDS SUMMARY | 2025-05-10 20:56 | XMS_ITS | Encounter Summary ---
Author Organization [facility] Address [address] [place] [address] Care Team Providers Care Dog Catcher Name Role Phone Unavailable Primary Care Provider Unavailabl e Encounter Details Date Type Department Care Team (Late st Contact Info) Description 08/08/2007 Outpatient Historical [facility] [address] 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
--- OUTSIDE RECORDS SUMMARY | 2025-05-10 20:56 | XMS_ITS | Patient Health Record ---
Author Organization [facility] Address [address] [place] [address] Care Team Providers Care Restaurant Crew Member Name Role Phone Hernan Duque Allergies No Known Allergies Reason For Referral No Information Medications Medication SIG (Take, Route, Frequency, Duration) Notes Start Date End Date Status Lisinopril 10 MG Tablet 1 tablet Orally Once a day; Duration: 90 days Active ProAir HFA 108 (90 Base) MCG/ACT Aerosol Solution 2 puff as needed Inhalation every 4 hrs; Duration: 30 days Active Isosorbide Mononitrate ER 30 MG Tablet Extended Release 24 Hour 0.5 tablet in the morning Orally twice a day; Duration: 90 days Active Metoprolol Tartrate 25 MG Tablet 1 tablet with food Orally Twice a day; Duration: 90 days Active Furosemide 20 MG Tablet 1 tablet Orally Twice a day; Duration: 90 days Active cloNIDine HCl 0.2 MG Tablet 1 tablet Ora lly Once a day; Duration: 90 days Active Symbicort 160-4.5 MCG/ACT Aerosol 2 puffs Inhalation Twice a day; Duration: 30 days 04/22/2020 Active Eliquis 5 MG Tablet 1 tab Orally TWICE A DAY; Duration: 90 days Active Cyclobenzaprine HCl 5 MG Tablet 1 tablet as needed Orally Twice a day 02/28/2022 Active traMADol HCl 50 MG Tablet 1 tab Orally q 4 hours prn severe pain; Duration: 30 days 02/15/2022 Active Medrol 4 MG Tablet Therapy Pack as directed Orally 02/28/2022 Active Immunizations Vaccine Route Administration Date Status Comme nts Influenza (whole), CPT 94863 Inactive Unknown 02/13/2016 Administered Influenza (whole), CPT 23913 Inactive Unknown 02/12/2017 Administered Social History Tobacco Use: Social History Observation Description Date Details (start date - stop date) Never Smoker NA - NA Social History Depression Screening Social Info Question Answer Notes PHQ-9 Little interest or pleasure in doing thin gs Not at all Feeling down, depressed, or hopeless Not at all Trouble falling or staying asleep, or sleeping t oo much Not at all Feeling tired or having little energy Not at all Poor appetite or overeating Not at all Feeling bad about yourself, or that you are a failure, or have let yourself or your family down Not at all Trouble concentrating on thi ngs, such as reading the newspaper or watching television Not at all Moving or speaking so slowly that other people could have noticed. Or the opposite ? being so fidgety or restless that you have been moving around a lot more than usual Not at all Thoughts that you would be b milton off , or of hurting yourself in some way Not at all Total Score 0 Drugs/Alcohol: Social Info Question Answer Notes Alcohol Screen (Audit-C) Did you have a drink containing alcohol in the past year? No Points 0 Interpretation Negative Drugs Have you used drugs other than those for medical reasons in the past 12 months? No Tobacco Use: Social Info Question Answer Notes xTobacco Use/Smoking Are you a nonsmoker Additional Details Category Social Info Options Details Drugs/Alcohol: Do you smoke marijuana? De nies Do you drink alcohol? No zzMigrated Social History Migrated Social History Smoking Status:Never smoked tobacco (finding) Section Notes: 02/28/22 PHQ9 02/28/22 PHQ9 02/28/22 PHQ9 02/28/22 PHQ9 02/28/22 PHQ9 Problems Problem Type SNOMED Code ICD Code Onset Dates Problem Status W/U Status Risk Notes Problem Localized, primary osteoarthritis of the shoulder region (106961426) Primary osteoarthritis of right shoulder (M19.011) Active confirmed Problem Sleep apnea (49879198) Sleep apnea in adult (G47.30) Active confirmed Problem Obstructive sleep apnea syndrome (42621056) Obstructive sleep apnea syndrome (G47.33) Active confirmed Problem Tension-type headache (037547926) Acute non intractable tension-type headache (G44.209) Active confirmed Problem Primary hypertension (96840234) Primary hypertension (I10) Active confirmed Encounters Encounter Location Date Provider Diagnosis [facility] [address] [place] [address] 06/12/2024 Hernan Duque Nondisplaced fractur e of base of neck of right femur, subsequent encounter for closed fracture with routine healing S72.044D ; Acute non intractable tension-type headache G44.209 ; Sleep apnea in adult G47.30 ; Obstructive sleep apnea syndrome G47.33 ; Primary osteoarthritis of right shoulder M19.011 and Primary hypertension I10 [facility] [address] [place] [address] 06/07/2024 Hernan Duque Acute non intractabl e tension-type headache G44.209 ; Sleep apnea in adult G47.30 and Obstructive sleep apnea syndrome G47.33 [facility] [address] [place] [phone] 05/13/2024 Hernan Duque [facility] [address] [place] [id number] 05/10/2024 Hernan Duque Assessments Encounter Date Diagnosis (ICD Code) Assessment Notes Treatment Notes Treatment Clinical Notes Section Notes 06/12/2024 Nondisplaced fracture of base of neck of right femur, subsequent encounter for closed fracture with routine healing (ICD-10 - S72.044D) 06/07/2024 Acute non intractable tension-type headache (ICD-10 - G44.209) 06/12/2024 Acute non intractable tension-type headache (ICD-10 - G44.209) 06/07/2024 Sleep apnea in adult (ICD-10 - G47.30) 06/12/2024 Sleep apnea in adult (ICD-10 - G47.30) 06/07/2024 Obstructive sleep apnea syndrome (ICD-10 - G47.33) 06/12/2024 Obstructive sleep apnea syndrome (ICD-10 - G47.33) 06/12/2024 Primary osteoarthritis of right shoulder (ICD-10 - M19.011) 06/12/2024 Primary hypertension (ICD-10 - I10) 06/07/2024 Other Medications reviewed, orders signed and documented with nursing staff. Vitals taken and recorded at [facility]. 06/12/2024 Other Medications reviewed, orders signed and documented with nursing staff. Vitals taken and recorded at [facility]. Pt approved for discharge. Plan Of Treatment No Information Insurance Providers Payer Name Payer Address Payer Phone Subscriber Number Group Number Insured Name Patient Relationship to Insured Coverage Start Date Coverage End Date Medicare [address] [address] JACOB LOZANO [phone] [id number] Cristina Rock Self - patient is the insured [employer] [address] [address] [place]ENCE ROBLES [phone] [id number] Cristina Rock Self - patient is the insured Medications Administered Medication Instructions Date of Administration Dosage Notes DEPO-Medrol 02/15/2022 40 mg ndc 77502-578 2-1 pt tolerated well/instructed to wait 20 min dexAMETHasone 02/15/2022 4 mg ndc 03257-6 39-30 pt tolerated well/instructed to wait 20 min Ketorolac Tromethamine 02/15/2022 60 [place] c [address]-246-91 pt tolerated well/instructed to wait 20 min Ketorolac Tromethamine 02/28/2022 60 mg NDC: 67270-808-15 Patient tolerated well, advised to wait 20 min at clinic ZZToradol 60mg/2ml 10/23/2019 60 mg Medical (General) History Medical History History ICD Code Problem:Arthritis (disorder) , Status :: Active Problem:At risk for falls (finding) , St atus :: Active Problem:Hypercholesterolemia (disorder) , Status :: Active Problem:Hypertensive disorde r, systemic arterial (disorder) , Status :: Active Problem:Hyperthyroidism (disorder) , Sta tus :: Active Surgical History Surgery Date(Month/Year) back surgery cholecystectomy appendectomy
--- OUTSIDE RECORDS SUMMARY | 2025-05-10 20:56 | XMS_ITS | Encounter Summary ---
Author Organization [facility] Address [address] [place] [address] Care Team Providers Care Fruit Ii Farmworker Name Role Phone Unavailable Primary Care Provider Unavailabl e Encounter Details Date Type Department Care Team (Latest Contact Info) Description 08/27/2001 Outpatient Historical [facility] [place] [address] [place] [address] Crystal Robison MD NO ADDRESS ON FILE SCREENING MAMM-MAILG NEOPL-OTHER (Primary Dx) Social History Tobacco Use Types Packs/Day Years Used Date Smoking Tobacco: Never Assessed Comments Unknown Sex and Gender Information Value Date Recorded Sex Assigned at Not on file 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
--- OUTSIDE RECORDS SUMMARY | 2025-05-10 20:56 | XMS_ITS | Encounter Summary ---
Author Organization [facility] Address [address] [place] [address] Care Team Providers Care Spool Tender Name Role Phone Unavailable Primary Care Provider Unavailabl e Encounter Details Date Type Department Care Team (Late st Contact Info) Description 10/30/1998 Outpatient Historical [facility] [address] [facility] [facility] [address] [place] [address] Essie Mojica MD NO ADDRESS ON FILE Other specified personal history presenting hazards to health(V15.89) (Primary Dx) Social History Tobacco Use Types Packs/Day Years Used Date Smoking Tobacco: Never Assessed Comments Unknown Sex and Gender Information Value Date Recorded Sex Assigned at Not on file 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
--- OUTSIDE RECORDS SUMMARY | 2025-05-10 20:56 | XMS_ITS | Encounter Summary ---
Author Organization [facility] Address [address] [facility] Attn: Epic Prelude ADT ADRIAN GONZALEZ [address] Care Team Providers Care Apartment Maintenance Name Role Phone Unavailable Primary Care Provider Unavailabl e Encounter Details Date Type Department Care Team (Late st Contact Info) Description 08/27/2001 Outpatient Historical Oni Jain, DO [address] [place] [address] Social History Tobacco Use Types Packs/Day Years Used Date Smoking Tobacco: Never Assessed Comments Unknown Sex and Gender Information Value Date Recorded Sex Assigned at Not on file Legal Sex Female 4:19 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
--- OUTSIDE RECORDS SUMMARY | 2025-05-10 20:56 | XMS_ITS | Encounter Summary ---
Author Organization [facility] Address [address] [place] [address] Care Team Providers Care Welding Rod Coater Name Role Phone Unavailable Primary Care Provider Unavailabl e Encounter Details Date Type Department Care Team (Late st Contact Info) Description 08/18/2000 Outpatient Historical [facility] [address] [facility] [address] [place] [address] Essie Mojica MD NO ADDRESS ON FILE Other screening mammogram (Primary Dx) Social History Tobacco Use Types Packs/Day Years Used Date Smoking Tobacco: Never Assessed Comments Unknown Sex and Gender Information Value Date Recorded Sex Assigned at Not on file 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
--- OUTSIDE RECORDS SUMMARY | 2025-05-10 20:56 | XMS_ITS | Encounter Summary ---
Author Organization [facility] Address [address] [place] [address] Care Team Providers Care Assembling Machine Operator Name Role Phone Unavailable Primary Care Provider Unavailabl e Encounter Details Date Type Department Care Team (Latest Contact Info) Description 10/30/1997 Outpatient Historical [facility] Family [facility]- [place] [address] [place] [address] Pranav Bardales MD NO ADDRESS ON FILE Other and unspecified hyperlipidemia (Primary Dx); Benign hypertensive heart disease without heart failure Social History Tobacco Use Types Packs/Day Years Used Date Smoking Tobacco: Never Assessed Comments Unknown Sex and Gender Information Value Date Recorded Sex Assigned at Not on file 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
--- OUTSIDE RECORDS SUMMARY | 2025-05-10 20:56 | XMS_ITS | Encounter Summary ---
Author Organization [facility] Address [address] [place] [address] Care Team Providers Care Direct Support Staff Name Role Phone Unavailable Primary Care Provider Unavailabl e Encounter Details Date Type Department Care Team (Late st Contact Info) Description 10/03/2007 Outpatient Historical [facility] [address] 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 Comparisons: None. Clinical History: Vascular screening. Findings: The proximal abdominal aorta measures 2.5 cm in AP diameter. The mid abdominal aorta measures 2.0 cm in AP diameter. The distal abdominal aorta measures 1.9 cm in AP diameter. Impression: 1. No evidence for abdominal aortic aneurysm. Dictated By: Dale Partida M.D., Ph.D. Electronically Signed By: Dale Partida M.D., Ph.D. Date Signed: 05/25/08 Procedure Note Dale Partida - 10/07/2007 Screening aortic ultrasound - October 03, 2007 12:43:40 PM . Comparisons: None. Clinical History: Vascular screening. Findings: The proximal abdominal aorta measures 2.5 cm in AP diameter.The mid abdominal aorta measures 2.0 cm in AP diameter. The distal abdominal aorta measures 1.9 cm in APdiameter. Impression: 1. No evidence for abdominal aortic aneurysm. Dictated By: Dale Partida M.D., Ph.D. Electronically Signed By: Dale Partida M.D., Ph.D. Date Signed: 10/07/07 us Susan Porter RN US ORDERABLES Final Result documented in this encounter Visit Diagnoses Not on filedocumented in this encounter
--- OUTSIDE RECORDS SUMMARY | 2025-05-10 20:56 | XMS_ITS | Clinical Summary ---
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
--- OUTSIDE RECORDS SUMMARY | 2025-05-10 20:56 | XMS_ITS | Encounter Summary ---
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
--- NOTE | 2025-05-10 20:58 | CTR_ITS ---
PROCEDURE INFORMATION: Exam: CT Head Without Contrast Exam date and time: 05/10/2025 9:40 PM Age: 89 years old Clinical indication: Injury or trauma; Blunt trauma (contusions or hematomas); EMS arrival for fall at home with headstrike. Hematoma to occipital. Anticoagulated. TECHNIQUE: Imaging protocol: Computed tomography of the head without contrast. Radiation optimization: All CT scans at this facility use at least one of these dose optimization techniques: automated exposure control; mA and/or kV adjustment per patient size (includes targeted exams where dose is matched to clinical indication); or iterative reconstruction. COMPARISON: No relevant prior studies available. RADIATION DOSE METRICS: Total DLP (mGy-cm): 1012.65 FINDINGS: Brain: Acute subdural hematoma along the inner table right frontal bone, right temporal bone and right parietal bone. This most marked along the inner table of the right parietal bone. It measures 18 mm in thickness. It compresses the right superior parietal convexity. There is effacement of sulci. Some mass effect upon the posterior body and atria of the right lateral ventricle. There is a midline shift to the left of the proximally 3.6 mm. No significant mass effect upon right temporal lobe. Right frontal hematoma measures measures 1 point 2 7 cm in thickness. Mild mass effect right frontal lobe with some effacement of the sulci and mild midline shift of the proximally 3.8 mm. Additional subdural hematoma along the right side of the anterior right hemispheric fissure with slight effacement adjacent sulci in this area. Some increased density along the right tentorial incisor and lateral insertion of the right tentorium consistent with subdural blood. [id number] generalized atrophy. Calcification cavernous portions of the internal carotid arteries. Areas of decreased periventricular and subcortical white matter density consistent with chronic ischemic changes. Cerebral ventricles: No ventriculomegaly. Paranasal sinuses: Visualized sinuses are unremarkable. No fluid levels. Mastoid air cells: Visualized mastoid air cells are well aerated. Bones: Unremarkable. No acute fracture. Soft tissues: Left posterior parietal scalp hematoma/contusion. Hematoma measures up 2.36 mm in transverse diameter and 7 mm in thickness. Left occipital scalp hematoma measuring [address]/CT head wo con* [id number] IMPRESSION: 1. Acute subdural hematoma along the inner table of the right frontal, temporal and parietal bones. Largest component over the right posterior cerebral parietal convexity. 2. Also small subdural hematoma along the right side of the anterior interhemispheric fissure 3. Also small amount of subdural blood along the right tentorium.. 4. Hematoma/ contusions left posterior parietal scalp and left occipital scalp.
--- NOTE | 2025-05-10 20:58 | CTR_ITS ---
PROCEDURE INFORMATION: Exam: CT Cervical Spine Without Contrast Exam date and time: 05/10/2025 9:42 PM Age: 89 years old Clinical indication: Injury or trauma; Blunt trauma; EMS arrival for fall at home with headstrike. Hematoma to occipital. Anticoagulated. TECHNIQUE: Imaging protocol: Computed tomography of the cervical spine without contrast. Radiation optimization: All CT scans at this facility use at least one of these dose optimization techniques: automated exposure control; mA and/or kV adjustment per patient size (includes targeted exams where dose is matched to clinical indication); or iterative reconstruction. COMPARISON: CR (PELVIS, ) 05/10/2025 9:28 PM RADIATION DOSE METRICS: Total DLP (mGy-cm): 237.01 FINDINGS: Bones: Demineralization consistent with the patient's age. Mild curvature convexity to the left and some straightening of the lordosis. Degenerative changes throughout the cervical spine no acute appearing bony abnormalities. Bilateral foraminal narrowing C4-C5, C5-C6, C6-C7 on the left. Borderline spinal stenosis C4-C5.. Lungs: Right pleural effusion. Soft tissues: Carotid bifurcation calcification. No masses or significant adenopathy evident. CT/CT cervical spin wo con* [id number] IMPRESSION: No acute cervical spine fracture.
--- NOTE | 2025-05-10 20:58 | XRR_ITS ---
PROCEDURE INFORMATION: Exam: XR Chest Exam date and time: 05/10/2025 9:35 PM Age: 89 years old Clinical indication: Injury or trauma; Blunt trauma (contusions or hematomas); EMS arrival for unwitnessed fall. Patient found down on floor at home. ; Additional info: Dyspnea/cough TECHNIQUE: Imaging protocol: Radiologic exam of the chest. Views: 1 view. COMPARISON: CR (CHEST, ) 06/10/2023 7:04 PM FINDINGS: Lungs: Unremarkable. No consolidation. Pleural spaces: Unremarkable. No pleural effusion. No pneumothorax. Heart/Mediastinum: Mild cardiomegaly. Bones/joints: Demineralized bones. Negative for acute thoracic fractures. XR/XR chest 1V portable [id number] IMPRESSION: No acute chest pathology.
--- NOTE | 2025-05-10 20:59 | ED_ITS ---
HPI - General Adult 2 General: Chief complaint: Fall Stated complaint: FALL Time Seen by Provider: 05/10/25 20:54 History of Present Illness: 89-year-old female presents emergency ro om after being found down in her home she was between the bed and the door she gotten out of bed to try to go to the bathroom sometime suspected early in the morning. She has family members to help with her but had not been by to check on her throughout the day she was found at about 8:00 this evening. She is complaining of some right lower leg pain. Associated symptoms: Deny chest pain, dyspnea or rash Related Data Home Medications ?Medication ?Instructions ?Recorded ?Confirmed ascorbic acid (vitamin C) 500 mg 500 mg PO BID 4 01/20/25 tablet (Vitamin C) cholecalciferol (vitamin D3) 50 100 mcg PO DAILY 06/1101/20/25 mcg (2,000 unit) tablet (Vitamin D3) vit C 250 mg-vit E 90 mg-zinc 40 1 tab PO BID 06/11/23 01/20/25 mg-copper 1 md-[id number] capsule (PreserVision AREDS-2) vitamin E (dl, acetate) 180 mg 180 mg PO DAILY 4 01/20/25 (400 unit) capsule Previous Rx's ?Medication ?Instructions ?Recorded nitroglycerin 0.4 mg sublingual 0.4 mg sublingual Q5M PRN chest 06/28/21 tablet (Nitrostat) pain #20 tabs albuterol sulfate 90 mcg/actuation See Rx Instructions .Route 12/26/22 aerosol inhaler .COMPLEX #18 grams budesonide 160 mcg-glycopyr 9 2 inh inhalation BID #10 .7 grams 08/18/23 mcg-formot 4.8 mcg/actuation HFA inhaler (Breztri Aerosphere) albuterol sulfate 2.5 mg/3 mL 2.5 mg (3 mL) inhalation QID PRN 08/29/23 (0.083 %) solution for nebulization shortness of breat h or wheezing #180 mL nebulizer machine, tubing and #1 ea 08/29/23 delivery device ondansetron 4 mg disintegrating 4 mg PO Q8H PRN nausea and 10/03/23 tablet vomiting 7 days #21 tabs cyanocobalamin (vitamin B-12) 1,000 mcg IM .monthly #1 mL 01/16/24 1,000 mcg/mL injection solution losartan 25 mg tablet See Rx Instructions .Route 1 05/28/23 .COMPLEX #90 tabs clonidine HCl 0.2 mg tablet See Rx Instructions .Route 11/27/24 .COMPLEX #90 tabs isosorbide mononitrate 30 mg See Rx Instructions .Rout e 12/16/24 tablet,extended release 24 hr .COMPLEX #90 tabs rivaroxaban 20 mg tablet (Xarelto) See Rx Instructions .Route 01/10/25 .COMPLEX #90 tabs cephalexin 500 mg capsule 500 mg PO TID #21 caps 01/20 citalopram 10 mg tablet See Rx Instructions .Route 0 02/05/25 .COMPLEX #30 tabs oxybutynin chloride 5 mg See Rx Instructions .Route 0 02/05/25 tablet,extended release 24 hr .COMPLEX #30 tabs metoprolol tartrate 25 mg tablet 12.5 mg (1/2 x 25 mg) PO DAILY #90 03/14/25 tabs Allergies Allergy/AdvReac Type Severity Reaction Status Date / Time No Known Allergies Allergy Verified 01/20/25 13:09 Review of Systems 2 Const: Denies: fever(s) or chills Card: Denies: chest pain Resp: Denies: dyspnea GI: Denies: abdominal pain : Denies: dysuria, urinary frequency or urinary urgency Musc: Denies: neck pain or back pain Skin/Breast: Denies: rash PFSH ED 2 PFSH: Medical History Enrolled in chronic care management Dementia 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 Elevated liver enzymes Primary osteoarthritis of left knee Pernicious anemia 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 Diastolic congestive heart failure Dyslipidemia Essential hypertension Emphysema lung Statin intolerance Hyperlipemia Atrial fibrillation Fatigue Hypertension Shortness of breath Surgical History History of right hip replacement partial April 2024 History of cholecystectomy History of appendectomy History of back surgery Family History Other Heart disease Hypertension Social History (Reviewed 05/19/25 @ 08:40 by SEAN Nicole Smoking and tobacco/nicotine status: never used tobacco/nicotine Second hand smoke exposure: No Alcohol intake: never Substance/Drug Use: never Lives independently: Yes Household members: none Housing: House Marital status: / service: No Current occupational status: retired Pets and animals: Yes Current gender identity: Female Special james needs: No Agree to transfusion: Yes Physical Exam 2 Const: COMMON NORMALS: no acute distress GENERAL APPEARANCE: cooperative and comfortable ORIENTATION/CONSCIOUSNESS: Yes awake, Yes oriented to person, Yes oriented to place and Yes oriented to time HENMT: COMMON NORMALS: normocephalic, atraumatic and hearing grossly normal bilaterally HEAD & SCALP: normocephalic and atraumatic Resp: COMMON NORMALS: normal respiratory effort, No retractions, No use of accessory muscles and clear to auscultation bilaterally AUSCULTATION: clear to auscultation bilaterally Cardio: COMMON NORMALS: regular rate, regular rhythm and No murmurs present (Cardio) RATE: regular rate RHYTHM: regular rhythm GI: COMMON NORMALS: Soft to palpation and No hepatosplenomegaly present A USCULTATION: Yes normoactive bowel sounds PALPATION: Yes Soft to palpation, No Tenderness to palpation present (GI), No Guarding due to palpation present (GI) and Yes No hepatosplenomegaly present Extremity: COMMON NORMALS: normal to inspection, capillary refill normal, no clubbing, cyanosis or edema, no calf tenderness and no pedal edema Neuro: SENSORIUM/ORIENTATION: Yes oriented to person, Yes oriented to place and Yes oriented to time Skin: COMMON NORMALS: no rashes or lesions noted GENERAL SKIN EXAM: no rashes or lesions noted Course 2 Vital Signs: Vital signs: Vital Signs Temperature 98.1 F 05/10/25 21:00 Pulse Rate 91 05/11/25 02:48 Respiratory Rate 18 05/10/25 21:00 Blood Pressure 118/78 05/11/25 02:48 Pulse Oximetry 93 05/11/25 02:48 Oxygen Delivery Me thod Room Air 05/11/25 02:48 MDM - General Adult Medical Decision Making Labs and imaging reviewed as found in the chart. EKG normal. UA showed cystitis. CBC unremarkable INR is 1.55. Glucose 140 chemistries no clinically significant abnormalities T. bili elevated at 1.7 with normal liver functions. Urine shows 50-100 white blood cells per high-power field suggestive of cystitis. CT head shows acute subdural hematoma chest x-ray and cervical spine were normal. Pelvis x-ray no acute fractures exam of sacrum and coccyx are negative patient had indicated pain at that level. No fractures noted there. Right tib- fib was normal. Family members not present we did contact them by phone reviewing her chart found that she previously was prescribed Xarelto but the last time she picked it up was at the end of February however in talking with the family she has continued to take it and they set up her medications. She has not picked up a prescription recently has been intermittently taking it through the month of March and then started taking it regularly again in April. Her INR would indicate she has been taking it. It is slightly elevated. Patient was given TXA also given initial dose of Andexxa. She is given dose of Rocephin for UTI. No other fractures found will transfer to neurosurgery patient is ER to ER transfer. Blood pressure is elevated and she was also started on nicardipine in the emergency room titrated to systolic pressure goal of less than 120 systolic. Patient transferred to [facility] in [place] via ambulance is in stable condition at the time of discharge. She is awake alert blood pressure control improved. Medical Records I reviewed the patient's medical records. Lab Data I reviewed the patient's lab results. 05/10/25 22:00 05/10/25 22:00 Radiology Impressions Cervical Spine CT 05/10/25 20:58 IMPRESSION: No acute cervical spine fracture. Chest X-Ray 05/10/25 20:58 IMPRESSION: No acute chest pathology. Head CT 05/10/25 20:58 IMPRESSION: 1. Acute subdural hematoma along the inner table of the right frontal, temporal and parietal bones. Largest component over the right posterior cerebral parietal convexity. 2. Also small subdural hematoma along the right side of the anterior interhemispheric fissure 3. Also small amount of subdural blood along the right tentorium.. 4. Hematoma/ contusions left posterior parietal scalp and left occipital scalp. ADDENDUM: 05/11/25 0001 Was notified by Pasquale Armas that Dr. Garcia received the report and had no further questions. Pelvis X-Ray 05/10/25 21:00 IMPRESSION: Negative for acute pathology. Sacrum and Coccyx X-Ray 05/10/25 21:00 IMPRESSION: Negative for acute pathology. Tibia/Fibula X-Ray 05/10/25 21:00 IMPRESSION: Negative for acute pathology. Laboratory Results WBC 8.71 10^3/uL (3.29-11.43) 05/10/25 22:00 RBC 5.02 10^6/uL (3.85-5.65) 05/10/25 22:00 Hgb 14.50 g/dL (11.27-16.99) 05/10/25 22:00 Hct 43.5 % (36-47) 05/10/25 22:00 MCV 86.7 fl (85-98) 05/10/25 22:00 MCH 28.9 pg (27-33) 05/10/25 22:00 MCHC 33.3 g/dL (30-55) 05/10/25 22:00 RDW 13.4 % (12.1-15.1) 05/10/25 22:00 Plt Count 207 10^3/cmm (157-399) 05/10/25 22:00 MPV 11.4 fL (7.4-10.4) H 05/10/25 22:00 Neut % (Auto) 88.1 % 05/10/25 22:00 Lymph % (Auto) 7.6 % 05/10/25 22:00 Hemphill % (Auto) 3.7 % 05/10/25 22:00 Eos % (Auto) 0.0 % 05/10/25 22:00 Baso % (Auto) 0.1 % 05/10/25 22:00 Neut # (Auto) 7.68 10^3/uL (1.8-7.7) 05/10/25 22:00 Lymph # (Auto) 0.7 10^3/uL (0.8-4.8) L 05/10/25 22:00 Hemphill # (Auto) 0.3 10^3/uL (0.2-0.9) 05/10/25 22:00 Eos # (Auto) 0.0 10^3/uL (0.0-0.8) 05/10/25 22:00 Baso # (Auto) 0.0 10^3/uL (0.0-0.1) 05/10/25 22:00 Nucleated RBC % (auto) 0 % 05/10/25 22:00 Nucleated RBCs # 0.0 /100WBC 05/10/25 22:00 PT 19.60 SECONDS (12.1-14.9) H 05/10/25 23:20 INR 1.55 (0.8-1.2) H 05/10/25 23:20 APTT 27.2 SECONDS (23.9-36.7) 05/10/25 23:20 Sodium 137 mmol/L (136-145) 05/10/25 22:00 Potassium 4.0 mmol/L (3.5-5.1) 05/10/25 22:00 Chloride 96 mmol/L (98-107) L 05/10/25 22:00 Carbon Dioxide 28 mmol/L (22-29) 05/10/25 22:00 Anion Gap 17.0 (5-19) 05/10/25 22:00 BUN 15 mg/dL (8-23) 05/10/25 22:00 Creatinine 0.7 mg/dL (0.5-0.9) 05/10/25 22:00 GFR Calculation Not Reportable 05/10/25 22:00 Glucose 140 mg/dL (65-115) H 05/10/25 22:00 Calculated Osmolality 287 mOsm/kg (285-295) 05/10/25 22:00 Calcium 10.1 mg/dL (8.5-10.5) 05/10/25 22:00 Total Bilirubin 1.7 mg/dL (0.15-1.2) H 05/10/25 22:00 AST 29 U/L (0-32) 05/10/25 22:00 ALT 15 U/L (0-33) 05/10/25 22:00 Alkaline Phosphatase 102 U/L (35-105) 05/10/25 22:00 Creatine Kinase 141 U/L (26-192) 05/10/25 22:00 Total Protein 8.1 g/dL (6.6-8.7) 05/10/25 22:00 Albumin 4.2 g/dL (3.5-5.2) 05/10/25 22:00 Globulin 3.9 g/dL (1.3-4.6) 05/10/25 22:00 Urine Color Yellow (Yellow) 05/10/25 21: Urine Appearance Cloudy (CLEAR) A 05/10/25: Urine pH 7.0 (5-7) 05/10/25: Ur Specific Mullan 1.014 (1.005-1.030) 05/10/25 21: Urine Protein 2+ (Negative) A 05/10/25: Urine Glucose (UA) Negative (Normal) 05/10/25: Urine Ketones Negative (Negative) 05/10/25: Urine Blood 1+ (Negative) A 05/10/25: Urine Nitrate Negative (Negative) 05/10/25: Urine Bilirubin Negative (Negative) 05/10/25: Urine Urobilinogen 1.0 mg/dL (Negative) 05/10/25: Ur Leukocyte Esterase 1+ (Negative) A 05/10/25: Urine RBC 6-10 /hpf (0-2) 05/10/25: Urine WBC 51-100 /hpf (0-5) H 05/10/25 21: Ur Squamous Epith Cells 0-5 /hpf (0-5) 05/10/25 21: Amorphous Sediment Not Reportable 05/10/25: Urine Bacteria 4+ /hpf (NONE) H 05/10/25: Hyaline Casts 0.81 /lpf 05/10/25 21:28 All radiology interpretation(s) finalized by discharge EKG Data EKG 1: I personally reviewed and interpreted this EKG as follows: Interpretation: EKG 05/10/2025 [address] changes rate of 68 KS interval 169 QTc 449 no acute findings. Compared to EKG 06/10/2023 previous EKG showed atrial flutter now in a sinus rhythm Computer generated interpretation: Cervical Spine CT 05/10/25 20:58 IMPRESSION: No acute cervical spine fracture. Chest X-Ray 05/10/25 20:58 IMPRESSION: No acute chest pathology. Head CT 05/10/25 20:58 IMPRESSION: 1. Acute subdural hematoma along the inner table of the right frontal, temporal and parietal bones. Largest component over the right posterior cerebral parietal convexity. 2. Also small subdural hematoma along the right side of the anterior interhemispheric fissure 3. Also small amount of subdural blood along the right tentorium.. 4. Hematoma/ contusions left posterior parietal scalp and left occipital scalp. ADDENDUM: 05/11/25 0001 Was notified by Pasquale Armas that Dr. Garcia received the report and had no further questions. Pelvis X-Ray 05/10/25 21:00 IMPRESSION: Negative for acute pathology. Sacrum and Coccyx X-Ray 05/10/25 21:00 IMPRESSION: Negative for acute pathology. Tibia/Fibula X-Ray 05/10/25 21:00 IMPRESSION: Negative for acute pathology. Critical Care Time 2 Critical Care Time: Critical Care Time: Yes Total Critical Care Time: 40 Attestation: The high probability of a clinically significant, sudden or life threatening deterioration of the patient's neurologic accelerated hypertension system(s) required my full and direct attention, intervention and personal management. The critical care time is as shown. This time is in addition to time spent performing any reported procedures but includes the following: [x] Data and vital sign review and interpretation [x] Patient assessment, examination and intervention [x] Documentation [x] Medication orders and management Discharge Plan Discharge Patient Disposition: Transfer to ED Clinical Impression: Acute subdural hematoma, Chronic anticoagulation, Cystitis, Accelerated essential hypertension Condition: Stable Prescriptions: No Action albuterol sulfate 90 mcg/actuation HFA aerosol inhaler See Rx Instructions .ROUTE .COMPLEX Qty: 18 12RF Dose Instruction: INJECT TWO PUFFS EVERY 6 HOURS NEEDED FOR SHORTNESS OF BREATH Rx Instructions: INJECT TWO PUFFS EVERY 6 HOURS NEEDED FOR SHORTNESS OF BREATH (DME) nebulizer machine, tubing and delivery device See Rx Instructions .Route .MEDSUPPLY Qty: 1 0RF Rx Instructions: As directed albuterol sulfate 2.5 mg /3 mL (0.083 %) solution for nebulization 2.5 mg inhalation QID PRN (Reason: shortness of breath or wheezing) Qty: 180 1RF Breztri Aerosphere 160-9-4.8 mcg/actuation HFA aerosol inhaler 2 inh inhalation BID Qty: 10.7 5RF cyanocobalamin (vitamin B-12) 1,000 mcg/mL solution 1,000 mcg IM .monthly Qty: 1 12RF nitroglycerin [Nitrostat] 0.4 mg tablet, sublingual 0.4 mg SUBLINGUAL Q5M PRN (Reason: chest pain) Qty: 20 2RF ondansetron 4 mg tablet,disintegrating 4 mg PO Q8H PRN (Reason: nausea and vomiting) 7 Days Qty: 21 0RF losartan 25 mg tablet See Rx Instructions .ROUTE .COMPLEX Qty: 90 1RF Dose Instruction: TAKE ONE TABLET BY MOUTH DAILY Rx Instructions: TAKE ONE TABLET BY MOUTH DAILY clonidine HCl 0.2 mg tablet See Rx Instructions .ROUTE .COMPLEX Qty: 90 3RF Dose Instruction: TAKE ONE TABLET BY MOUTH EVERY DAY AT BEDTIME. Rx Instructions: TAKE ONE TABLET BY MOUTH EVERY DAY AT BEDTIME. isosorbide mononitrate 30 mg tablet extended release 24 hr See Rx Instructions .ROUTE .COMPLEX Qty: 90 0RF Dose Instruction: TAKE 1/2 TABLET BY MOUTH TWICE DAILY Rx Instructions: TAKE 1/2 TABLET BY MOUTH TWICE DAILY Xarelto 20 mg tablet See Rx Instructions .ROUTE .COMPLEX Qty: 90 3RF Dose Instruction: TAKE ONE TABLET BY MOUTH EVERY DAY; must take with evening meal Rx Instructions: TAKE ONE TABLET BY MOUTH EVERY DAY; must take with evening meal cephalexin 500 mg capsule 500 mg PO TID Qty: 21 0RF citalopram 10 mg tablet See Rx Instructions .ROUTE .COMPLEX Qty: 30 2RF Dose Instruction: TAKE ONE TABLET BY MOUTH DAILY Rx Instructions: TAKE ONE TABLET BY MOUTH DAILY oxybutynin chloride 5 mg tablet extended release 24hr See Rx Instructions .ROUTE .COMPLEX Qty: 30 2RF Dose Instruction: TAKE ONE TABLET BY MOUTH DAILY Rx Instructions: TAKE ONE TABLET BY MOUTH DAILY metoprolol tartrate 25 mg tablet 12.5 mg PO DAILY Qty: 90 0RF Vitamin C 500 mg Tablet 500 mg PO BID Vitamin D3 50 mcg (2,000 unit) Tablet 100 mcg PO DAILY PreserVision AREDS-2 250-90-40-1 mg Capsule 1 tab PO BID vitamin E (dl, acetate) 180 mg (400 unit) Capsule 180 mg PO DAILY Referrals: Eloina Karimi FNP [Primary Care Provider, Family Practice] Print Language: Serbian Coding Level of Care Code ED Public Address System Operator for Angelina Kennedy
[2025-05-10 21:00] VITALS: BP 219/84; PULSE 80; RESP 18; TEMP 36.7; O2SAT 92; BMI 28.8
--- NOTE | 2025-05-10 21:00 | XRR_ITS ---
PROCEDURE INFORMATION: Exam: XR Sacrum and Coccyx, 2 or More Views Exam date and time: 05/10/2025 9:28 PM Age: 89 years old Clinical indication: Injury or trauma; Blunt trauma (contusions or hematomas); Prior surgery; Surgery date: 6+ months; Surgery type: Appy; EMS arrival for unwitnessed fall at home. Patient found down on floor. Endorses buttocks, RT hip, and RT lower leg pain. TECHNIQUE: Imaging protocol: XR of the sacrum and coccyx, 2 or more views. COMPARISON: CR (PELVIS, ) 05/10/2025 9:25 PM FINDINGS: Bones/joints: Negative for acute fractures. Severe degenerative joint changes of the left hip. Right hip arthroplasty partially included in the field of view with unremarkable alignment. Unremarkable alignment of the sacroiliac joints. No widening of the pubic symphysis. Soft tissues: Normal. XR/XR sacrum coccyx min 2V [id number] IMPRESSION: Negative for acute pathology.
--- NOTE | 2025-05-10 21:00 | XRR_ITS ---
PROCEDURE INFORMATION: Exam: XR Right Tibia and Fibula Exam date and time: 05/10/2025 9:33 PM Age: 89 years old Clinical indication: Injury or trauma; Blunt trauma; Right; EMS arrival for unwitnessed fall at home. Patient found down on floor. Endorses buttocks, RT hip, and RT lower leg pain. TECHNIQUE: Imaging protocol: Radiologic exam of the right tibia and fibula. Views: 2 views. COMPARISON: No relevant prior studies available. FINDINGS: Bones/joints: Bones are demineralized. Negative for acute fractures. Severe right knee joint productive osteoarthritis changes. Soft tissues: Normal. XR/XR tibia fibula RT 2V [id number] IMPRESSION: Negative for acute pathology.
--- NOTE | 2025-05-10 21:00 | XRR_ITS ---
PROCEDURE INFORMATION: Exam: XR Pelvis Exam date and time: 05/10/2025 9:25 PM Age: 89 years old Clinical indication: Injury or trauma; Blunt trauma (contusions or hematomas); Right; Prior surgery; Surgery date: 6+ months; Surgery type: RT zeenat; EMS arrival for unwitnessed fall at home. Patient found down on floor. Endorses buttocks, RT hip, and RT lower leg pain. TECHNIQUE: Imaging protocol: Radiologic exam of the pelvis. Views: 1 or 2 view. COMPARISON: CR XR hip RT 2-3V wo/w pel* [id number] 06/21/2022 1:37 PM FINDINGS: Bones/joints: Bones are demineralized. Negative for acute fractures. Unremarkable joint alignment. Severe left hip degenerative joint changes. Right hip arthroplasty. Soft tissues: Unremarkable. XR/XR pelvis 1-2V* [id number] IMPRESSION: Negative for acute pathology.
--- NOTE | 2025-05-10 21:16 | ECG_ITS ---
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
[2025-05-10 21:34] LABS: Glucose Urine UA Negative (Normal); Nitrate Urine Negative (Negative); Specific Gravity, Urine 1.014 (1.005-1.030)
[2025-05-10 21:39] LABS: Add Urine Microscopic? YES
[2025-05-10 22:09] VITALS: BP 206/72; PULSE 71; O2SAT 95
[2025-05-10 22:09] LABS: Hematocrit 43.5 % (36-47); Hemoglobin 14.50 g/dL (11.27-16.99); Mean Corpuscular HGB Conc 33.3 g/dL (30-55); Mean Corpuscular Hemoglobin 28.9 pg (27-33); Mean Corpuscular Volume 86.7 fl (85-98); Nucleated Red Blood Cells % 0 %; Platelet Count 207 10^3/cmm (157-399); Red Blood Count 5.02 10^6/uL (3.85-5.65); White Blood Count 8.71 10^3/uL (3.29-11.43)
[2025-05-10 22:30] VITALS: BP 210/77; PULSE 68; O2SAT 95
[2025-05-10 22:41] LABS: Alanine Aminotransferase 15 U/L (0-33); Albumin Level 4.2 g/dL (3.5-5.2); Alkaline Phosphatase 102 U/L (35-105); Anion Gap 17.0 (5-19); Aspartate Amino Transferase 29 U/L (0-32); Blood Urea Nitrogen 15 mg/dL (8-23); Calcium 10.1 mg/dL (8.5-10.5); Carbon Dioxide 28 mmol/L (22-29); Chloride 96 mmol/L (98-107); Globulin 3.9 g/dL (1.3-4.6); Glucose 140 mg/dL (65-115); Osmolality Calculated 287 mOsm/kg (285-295); Potassium 4.0 mmol/L (3.5-5.1); Sodium 137 mmol/L (136-145); Total Protein 8.1 g/dL (6.6-8.7)
[2025-05-10] MEDS: cefTRIAXone 1,000 mg SDV 1000 MG IVP (22:53)
[2025-05-10] MEDS: tranexamic acid 1,000 MG/100 ML PREMIX 600 MG IV (22:53)
[2025-05-10] MEDS: nicardipine 20 MG/200 ML PREMIX 50 MG IV (23:12)
[2025-05-10 23:14] VITALS: BP 195/92; PULSE 72; O2SAT 96
[2025-05-10 23:30] VITALS: BP 167/85; PULSE 81; O2SAT 94
[2025-05-10 23:41] LABS: INR 1.55 (0.8-1.2); Prothrombin Time 19.60 SECONDS (12.1-14.9)
[2025-05-10 23:42] LABS: Partial Thromboplastin Time 27.2 SECONDS (23.9-36.7)
[2025-05-10 23:52] VITALS: BP 140/73; PULSE 85; O2SAT 93
[2025-05-11 00:33] VITALS: BP 137/66; PULSE 94; O2SAT 95
[2025-05-11] MEDS: factor xa, inactivated-zhzo 400 MG in empty flexible container 1 EACH, non-DEHP filter ... 180 MG IV (01:01)
[2025-05-11 01:30] VITALS: BP 140/58; PULSE 88; O2SAT 94
[2025-05-11] MEDS: nicardipine 20 MG/200 ML PREMIX 125 MG IV (01:31)
--- NOTE | 2025-05-11 01:54 | PC.NURSE ---
PER DR. SANTIAGO THE PTS CARDENE SHOULD INFUSE UNTIL THE PTS SYSTOLIC PRESSURE IS BELOW 120
[2025-05-11 01:58] VITALS: BP 128/70; PULSE 87; O2SAT 93
[2025-05-11 02:24] VITALS: BP 129/60; PULSE 87; O2SAT 92
[2025-05-11 02:48] VITALS: BP 118/78; PULSE 91; O2SAT 93
== END 2025-05-11 03:15 ==
PROVIDERS: Emergency Provider Family Medicine; PCP Nurse Practitioner Family
DX: S06.5XAA Traumatic subdural hemorrhage with loss of consciousness status unknown, initial encounter (principal); Z79.01 Long term (current) use of anticoagulants; N30.90 Cystitis, unspecified without hematuria; I10 Essential (primary) hypertension; E78.5 Hyperlipidemia, unspecified; I11.0 Hypertensive heart disease with heart failure; I50.30 Unspecified diastolic (congestive) heart failure; W19.XXXA Unspecified fall, initial encounter
CPT/HCPCS: 36415; 70450; 71045; 72125; 72170; 72220; 73590; 80053; 81001; 82550; 85025; 85610; 85730; 87040; 87077; 87086; 87186; 93005; 96365; 96366; 96367; 96375; 99285; A4222; J0696; J2404; J7169; J9999